=== PATIENT | female | born 1985 | race Caucasian/White ===

== ENCOUNTER 2023-01-27 10:24 | Inpatient (IN) | payer OTHER ==
--- NOTE | 2023-01-27 10:44 | ED ---
Recheck HPI - General Chief Complaint: Recheck/Abnormal Lab/Rx Stated Complaint: fluid in stomach Time Seen by Provider: 01/27/23 10:33 Source: patient, RN notes reviewed Mode of arrival: ambulatory Limitations: no limitations - History of Present Illness Initial Comments: This is a 37-year-old female who presents to the emergency department for a paracentesis. Patient has liver failure secondary to alcohol abuse. She tried to check into [facility] today, but was sent here for a paracentesis. Patient states that she last had one a couple of weeks ago into [place], [place]. However, she is originally from [place], [place]. Currently complaining of abdominal pain related to the ascites. Denies any fevers, chills, sore throat, cough, chest pain, palpitations, nausea, vomiting, diarrhea, back pain, or headaches. - Related Data Home Medications Medication Instructions Recorded Confirmed Cyanocobalamin [Vitamin B-12] 500 mcg PO DAILY PRN 01/27/23 01/27/23 Furosemide [Lasix] 40 mg PO DAILY 01/27/23 01/27/23 Lactulose 20 gm PO TID PRN 01/27/23 01/27/23 Omeprazole [PriLOSEC] 20 mg PO DAILY 01/27/23 01/27/23 Spironolactone [Aldactone] 50 mg PO DAILY 01/27/23 01/27/23 nadoloL [Corgard] 20 mg PO DAILY 01/27/23 01/27/23 Allergies Allergy/AdvReac Type Severity Reaction Status Date / Time No Known Allergies Allergy Verified 01/27/23 12:18 Review of Systems ROS Statement: Those systems with pertinent positive or pertinent negative responses have been documented in the HPI. ROS Other: All systems not noted in ROS Statement are negative. Past Medical History Additional Past Medical History / Comment(s): Liver failure, ETOH abuse, Anemia History of Any Multi-Drug Resistant Organisms: None Reported Past Surgical History: No Surgical Hx Reported Past Psychological History: No Psychological Hx Reported Smoking Status: Never smoker Past Alcohol Use History: Abuse Past Drug Use History: None Reported - Past Family History Father Family Medical History: No Reported History Mother Additional Family Medical History / Comment(s): Anemia General Exam Limitations: no limitations General appearance: alert, in no apparent distress Head exam: Present: atraumatic, normocephalic, normal inspection Eye exam: Present: scleral icterus Respiratory exam: Present: normal lung sounds bilaterally. Absent: respiratory distress, wheezes, rales, rhonchi, stridor Cardiovascular Exam: Present: regular rate, normal rhythm, normal heart sounds. Absent: systolic murmur, diastolic murmur, rubs, gallop, clicks GI/Abdominal exam: Present: distended. Absent: soft Neurological exam: Present: alert, oriented X3, CN II-XII intact Psychiatric exam: Present: normal affect, normal mood Skin exam: Present: other (diffuse jaundice) Course Vital Signs 01/27/23 01/27/23 10:27 14:43 Temperature 97.7 F Pulse Rate 104 H 95 Respiratory 22 16 Rate Blood Pressure 132/78 108/71 O2 Sat by Pulse 100 100 Oximetry Medical Decision Making - Medical Decision Making This is a 37-year-old female who presents to the emergency department for ascites. Was pt. sent in by a medical professional or institution? @ -No Did you speak to anyone other than the patient for history? @ -No Did you review nursing and triage notes? @ -Yes, and I agree, it is accurate with regards to the patient's symptoms. Were old charts reviewed? @ -No Differential Diagnosis? @ -Differential Abdominal Distention: Ascites, internal bleeding, IBS, gas buildup, bowel obstruction, this is not meant to be an all-inclusive list. What testing was considered but not performed? (CT, X-rays, U/S, labs)? Why? @ -None What meds were considered but not given? Why? @ -None Did you discuss the management of the patient with other professionals? @ -Yes, Dr. Cope, who accepts the patient for admission. Did you reconcile home meds? @ -Yes Was smoking cessation discussed for >3mins.? @ -No Was critical care preformed (if so, how long)? @ -No Were there social determinants of health that impacted care today? How? (Homel essness, low income, unemployed, alcoholism, drug addiction, transportation, low edu. Level, literacy, decrease access to med. care, snf, rehab)? @ -Alcoholism, contributing to her poor liver function. Was there de-escalation of care discussed even if they declined? (Discuss DNR or withdrawal of care, Hospice)? @ -No What co-morbidities impacted this encounter? (DM, HTN, Smoking, COPD, CAD, Cancer, CVA, Hep., AIDS, mental health diagnosis, sleep apnea, morbid obesity)? @ -Alcoholism Was patient admitted / discharged? @ -Admitted. Lab work obtained and consistent with the patient's previously noted liver failure, with a bilirubin of 15.5. Patient is visibly jaundice with abdominal distention secondary to ascites. Patient admitted to medicine with IR consult for paracentesis. Undiagnosed new problem with uncertain prognosis? @ -None Drug Therapy requiring intensive monitoring for toxicity (Heparin, Nitro, Insulin, Cardizem)? @ -None Were any procedures done? @ -None Diagnosis/symptom? @ -Ascites Acute, or Chronic, or Acute on Chronic? @ -Acute Uncomplicated (without systemic symptoms) or Complicated (systemic symptoms)? @ -Complicated Side effects of treatment? @ -None Exacerbation, Progression, or Severe Exacerbation] @ -Not applicable Poses a threat to life or bodily function? @ -Yes Diagnosis/symptom? @ -Liver cirrhosis Acute, or Chronic, or Acute on Chronic? @ -Chronic Uncomplicated (without systemic symptoms) or Complicated (systemic symptoms)? @ -Complicated Side effects of treatment? @ -None Exacerbation, Progression, or Severe Exacerbation] @ -Severe exacerbation Poses a threat to life or bodily function? @ -Yes This case was discussed in detail with the attending ED physician, Dr. Louis. Presentation, findings, and treatment plan discussed in detail as well. - Lab Data Result diagrams: 01/27/23 11:05 01/27/23 11:05 Lab Results 01/27/23 01/27/23 01/27/23 Range/Units 11:05 11:05 11:05 WBC 2.7 L (3.8-10.6) k/uL RBC 2.07 L (3.80-5.40) m/uL Hgb 8.1 L (11.4-16.0) gm/dL Hct 24.3 L (34.0-46.0) % MCV 117.6 H (80.0-100.0) fL MCH 39.0 H (25.0-35.0) pg MCHC 33.2 (31.0-37.0) g/dL RDW 22.9 H (11.5-15.5) % Plt Count 32 L (150-450) k/uL MPV 9.2 Neutrophils % 77 % Lymphocytes % 12 % Monocytes % 6 % Eosinophils % 2 % Basophils % 1 % Neutrophils # 2.1 (1.3-7.7) k/uL Lymphocytes # 0.3 L (1.0-4.8) k/uL Monocytes # 0.2 (0-1.0) k/uL Eosinophils # 0.1 (0-0.7) k/uL Basophils # 0.0 (0-0.2) k/uL Differential Comment Manual Slide Review Performed Hypochromasia Slight Poikilocytosis Slight Anisocytosis Moderate Macrocytosis Marked A PT (9.0-12.0) sec INR (<1.2) APTT (22.0-30.0) sec Sodium 134 L (137-145) mmol/L Potassium 3.4 L (3.5-5.1) mmol/L Chloride 105 (98-107) mmol/L Carbon Dioxide 23 (22-30) mmol/L Anion Gap 6 mmol/L BUN 9 (7-17) mg/dL Creatinine 0.59 (0.52-1.04) mg/dL Est GFR (CKD-EPI)AfAm >90 (>60 ml/min/1.73 sqM) Est GFR (CKD-EPI)NonAf >90 (>60 ml/min/1.73 sqM) Glucose 165 H (74-99) mg/dL Plasma Lactic Acid Adrian 1.7 (0.7-2.0) mmol/L Calcium 7.7 L (8.4-10.2) mg/dL Total Bilirubin 15.5 H* (0.2-1.3) mg/dL Conjugated Bilirubin 2.4 H (0.0-0.3) mg/dL Unconjugated Bilirubin 7.3 H (0.0-1.1) mg/dL Delta Bilirubin 5.8 H (0.0-0.2) mg/dL AST 51 H (14-36) U/L ALT 30 (4-34) U/L Alkaline Phosphatase 73 (38-126) U/L Total Protein 6.6 (6.3-8.2) g/dL Albumin 2.6 L (3.5-5.0) g/dL Urine Color Urine Appearance (Clear) Urine pH (5.0-8.0) Ur Specific Cunningham (1.001-1.035) Urine Protein (Negative) Urine Glucose (UA) (Negative) Urine Ketones (Negative) Urine Blood (Negative) Urine Nitrite (Negative) Urine Bilirubin (Negative) Urine Urobilinogen (<2.0) mg/dL Ur Leukocyte Esterase (Negative) Urine RBC (0-5) /hpf Urine WBC (0-5) /hpf Ur Squamous Epith Cells (0-4) /hpf Urine Mucus (None) /hpf Urine HCG, Qual (Not Detectd) Urine Opiates Screen (NotDetected) Ur Oxycodone Screen (NotDetected) Urine Methadone Screen (NotDetected) Ur Propoxyphene Screen (NotDetected) Ur Barbiturates Screen (NotDetected) U Tricyclic Antidepress (NotDetected) Ur Phencyclidine Scrn (NotDetected) Ur Amphetamines Screen (NotDetected) U Methamphetamines Scrn (NotDetected) U Benzodiazepines Scrn (NotDetected) Urine Cocaine Screen (NotDetected) U Marijuana (THC) Screen (NotDetected) Serum Alcohol <10 mg/dL 01/27/23 01/27/23 01/27/23 Range/Units 11:05 12:48 12:48 WBC (3.8-10.6) k/uL RBC (3.80-5.40) m/uL Hgb (11.4-16.0) gm/dL Hct (34.0-46.0) % MCV (80.0-100.0) fL MCH (25.0-35.0) pg MCHC (31.0-37.0) g/dL RDW (11.5-15.5) % Plt Count (150-450) k/uL MPV Neutrophils % % Lymphocytes % % Monocytes % % Eosinophils % % Basophils % % Neutrophils # (1.3-7.7) k/uL Lymphocytes # (1.0-4.8) k/uL Monocytes # (0-1.0) k/uL Eosinophils # (0-0.7) k/uL Basophils # (0-0.2) k/uL Differential Comment Manual Slide Review Hypochromasia Poikilocytosis Anisocytosis Macrocytosis PT 18.8 H (9.0-12.0) sec INR 1.9 H (<1.2) APTT 30.9 H (22.0-30.0) sec Sodium (137-145) mmol/L Potassium (3.5-5.1) mmol/L Chloride (98-107) mmol/L Carbon Dioxide (22-30) mmol/L Anion Gap mmol/L BUN (7-17) mg/dL Creatinine (0.52-1.04) mg/dL Est GFR (CKD-EPI)AfAm (>60 ml/min/1.73 sqM) Est GFR (CKD-EPI)NonAf (>60 ml/min/1.73 sqM) Glucose (74-99) mg/dL Plasma Lactic Acid Adrian (0.7-2.0) mmol/L Calcium (8.4-10.2) mg/dL Total Bilirubin (0.2-1.3) mg/dL Conjugated Bilirubin (0.0-0.3) mg/dL Unconjugated Bilirubin (0.0-1.1) mg/dL Delta Bilirubin (0.0-0.2) mg/dL AST (14-36) U/L ALT (4-34) U/L Alkaline Phosphatase (38-126) U/L Total Protein (6.3-8.2) g/dL Albumin (3.5-5.0) g/dL Urine Color [employer] Urine Appearance Clear (Clear) Urine pH 6.5 (5.0-8.0) Ur Specific Cunningham 1.011 (1.001-1.035) Urine Protein Negative (Negative) Urine Glucose (UA) Negative (Negative) Urine Ketones Negative (Negative) Urine Blood Negative (Negative) Urine Nitrite Negative (Negative) Urine Bilirubin 2+ H (Negative) Urine Urobilinogen >12.0 (<2.0) mg/dL Ur Leukocyte Esterase Small H (Negative) Urine RBC 1 (0-5) /hpf Urine WBC 5 (0-5) /hpf Ur Squamous Epith Cells 3 (0-4) /hpf Urine Mucus Rare H (None) /hpf Urine HCG, Qual Not Detected (Not Detectd) Urine Opiates Screen (NotDetected) Ur Oxycodone Screen (NotDetected) Urine Methadone Screen (NotDetected) Ur Propoxyphene Screen (NotDetected) Ur Barbiturates Screen (NotDetected) U Tricyclic Antidepress (NotDetected) Ur Phencyclidine Scrn (NotDetected) Ur Amphetamines Screen (NotDetected) U Methamphetamines Scrn (NotDetected) U Benzodiazepines Scrn (NotDetected) Urine Cocaine Screen (NotDetected) U Marijuana (THC) Screen (NotDetected) Serum Alcohol mg/dL 01/27/23 Range/Units 12:48 WBC (3.8-10.6) k/uL RBC (3.80-5.40) m/uL Hgb (11.4-16.0) gm/dL Hct (34.0-46.0) % MCV (80.0-100.0) fL MCH (25.0-35.0) pg MCHC (31.0-37.0) g/dL RDW (11.5-15.5) % Plt Count (150-450) k/uL MPV Neutrophils % % Lymphocytes % % Monocytes % % Eosinophils % % Basophils % % Neutrophils # (1.3-7.7) k/uL Lymphocytes # (1.0-4.8) k/uL Monocytes # (0-1.0) k/uL Eosinophils # (0-0.7) k/uL Basophils # (0-0.2) k/uL Differential Comment Manual Slide Review Hypochromasia Poikilocytosis Anisocytosis Macrocytosis PT (9.0-12.0) sec INR (<1.2) APTT (22.0-30.0) sec Sodium (137-145) mmol/L Potassium (3.5-5.1) mmol/L Chloride (98-107) mmol/L Carbon Dioxide (22-30) mmol/L Anion Gap mmol/L BUN (7-17) mg/dL Creatinine (0.52-1.04) mg/dL Est GFR (CKD-EPI)AfAm (>60 ml/min/1.73 sqM) Est GFR (CKD-EPI)NonAf (>60 ml/min/1.73 sqM) Glucose (74-99) mg/dL Plasma Lactic Acid Adrian (0.7-2.0) mmol/L Calcium (8.4-10.2) mg/dL Total Bilirubin (0.2-1.3) mg/dL Conjugated Bilirubin (0.0-0.3) mg/dL Unconjugated Bilirubin (0.0-1.1) mg/dL Delta Bilirubin (0.0-0.2) mg/dL AST (14-36) U/L ALT (4-34) U/L Alkaline Phosphatase (38-126) U/L Total Protein (6.3-8.2) g/dL Albumin (3.5-5.0) g/dL Urine Color Urine Appearance (Clear) Urine pH (5.0-8.0) Ur Specific Cunningham (1.001-1.035) Urine Protein (Negative) Urine Glucose (UA) (Negative) Urine Ketones (Negative) Urine Blood (Negative) Urine Nitrite (Negative) Urine Bilirubin (Negative) Urine Urobilinogen (<2.0) mg/dL Ur Leukocyte Esterase (Negative) Urine RBC (0-5) /hpf Urine WBC (0-5) /hpf Ur Squamous Epith Cells (0-4) /hpf Urine Mucus (None) /hpf Urine HCG, Qual (Not Detectd) Urine Opiates Screen Not Detected (NotDetected) Ur Oxycodone Screen Not Detected (NotDetected) Urine Methadone Screen Not Detected (NotDetected) Ur Propoxyphene Screen Not Detected (NotDetected) Ur Barbiturates Screen Not Detected (NotDetected) U Tricyclic Antidepress Not Detected (NotDetected) Ur Phencyclidine Scrn Not Detected (NotDetected) Ur Amphetamines Screen Not Detected (NotDetected) U Methamphetamines Scrn Not Detected (NotDetected) U Benzodiazepines Scrn Not Detected (NotDetected) Urine Cocaine Screen Not Detected (NotDetected) U Marijuana (THC) Screen Detected H (NotDetected) Serum Alcohol mg/dL Disposition Clinical Impression: Cirrhosis of liver with ascites Disposition: ADMITTED IP TO THIS HOSP
[2023-01-27 11:55] LABS: ALT 30 U/L (4-34); AST 51 U/L (14-36); African American GFR (CKD) >90 (>60 ml/min/1.73 sqM); Albumin 2.6 g/dL (3.5-5.0); Alcohol <10 mg/dL; Alkaline Phosphatase 73 U/L (38-126); Anion Gap 6 mmol/L; Bilirubin, Conjugated 2.4 mg/dL (0.0-0.3); Bilirubin, Delta 5.8 mg/dL (0.0-0.2); Bilirubin,Unconjugated 7.3 mg/dL (0.0-1.1); Blood Urea Nitrogen 9 mg/dL (7-17); Calcium 7.7 mg/dL (8.4-10.2); Carbon Dioxide 23 mmol/L (22-30); Chloride 105 mmol/L (98-107); Glucose 165 mg/dL (74-99); Non-African American GFR(CKD) >90 (>60 ml/min/1.73 sqM); Potassium 3.4 mmol/L (3.5-5.1); Sodium 134 mmol/L (137-145)
[2023-01-27 12:11] LABS: Anisocytosis Moderate; Basophils % (A) 1 %; Eosinophils # (A) 0.1 k/uL (0-0.7); Eosinophils % (A) 2 %; HCT 24.3 % (34.0-46.0); HGB 8.1 gm/dL (11.4-16.0); Hypochromasia Slight; Lymphocytes # (A) 0.3 k/uL (1.0-4.8); Lymphocytes % (A) 12 %; MCHC 33.2 g/dL (31.0-37.0); MCV 117.6 fL (80.0-100.0); Macrocytosis Marked; Mean Platelet Volume 9.2; Monocytes # (A) 0.2 k/uL (0-1.0); Monocytes % (A) 6 %; Neutrophils # (A) 2.1 k/uL (1.3-7.7); Neutrophils % (A) 77 %; Poikilocytosis Slight; RBC 2.07 m/uL (3.80-5.40); RDW 22.9 % (11.5-15.5); WBC 2.7 k/uL (3.8-10.6)
[2023-01-27 12:13] LABS: Total Bilirubin 15.5 mg/dL (0.2-1.3); Total Protein 6.6 g/dL (6.3-8.2)
[2023-01-27 13:15] LABS: Appearance,Urine Clear (Clear); Bilirubin,Urine 2+ (Negative); Blood,Urine Negative (Negative); Color,Urine Orange; Glucose,Urine (UA) Negative (Negative); Ketones,Urine Negative (Negative); Leukocyte Esterase,Urine Small (Negative); Mucus,Urine Rare /hpf; Nitrite,Urine Negative (Negative); PH, Urine 6.5 (5.0-8.0); Protein,Urine Negative (Negative); RBC,Urine 1 /hpf (0-5); Specific Gravity,Urine 1.011 (1.001-1.035); Squamous Epithelial Cell,Urine 3 /hpf (0-4); Urobilinogen,Urine >12.0 mg/dL (<2.0); WBC,Urine 5 /hpf (0-5)
[2023-01-27 13:19] LABS: INR 1.9 (<1.2); Partial Thromboplastin Time 30.9 sec (22.0-30.0); Prothrombin Time 18.8 sec (9.0-12.0)
[2023-01-27 13:27] LABS: Platelet Count 32 k/uL (150-450)
[2023-01-27 13:40] LABS: Amphetamine Screen,Urine Not Detected (NotDetected); Barbiturate Screen,Urine Not Detected (NotDetected); Benzodiazepines Screen,Urine Not Detected (NotDetected); Cocaine Screen,Urine Not Detected (NotDetected); Methadone Screen, Urine Not Detected (NotDetected); Opiate Screen,Urine Not Detected (NotDetected); Oxycodone Screen, Urine Not Detected (NotDetected); Phencyclidine Screen,Urine Not Detected (NotDetected); Tricyclic Antidepressant,Urine Not Detected (NotDetected); Urn Cannabinoid Scrn Detected (NotDetected)
[2023-01-27] MEDS ORDERED: ONDANSETRON 4 MG/2 ML VIAL IVP PRN (14:04)
[2023-01-27] MEDS ORDERED: NALOXONE 0.4 MG/ML 1 ML VIAL IV PRN (14:04)
[2023-01-27] MEDS ORDERED: LACTULOSE 20 GM/30 ML CUP PO PRN (14:10)
[2023-01-27] MEDS ORDERED: CYANOCOBALAMIN 500 MCG TAB PO PRN (14:10)
--- NOTE | 2023-01-27 23:52 | P.HPIM ---
History of Present Illness H&P Date: 01/27/23 Chief Complaint: Abdominal distention Patient is a 37-year-old female with a known history of alcoholic liver cirrhosis, ascites with recent paracentesis on 01/19/2023 at [facility], anemia and alcohol abuse last drink in November 2022 presents to ER with complaints of abdominal distention and paracentesis. Patient tried to check in the [place] but was sent here for paracentesis. Otherwise patient denies any complaints of abdominal pain. No fever no chills. Shortness of breath with exertion. No pleuritic chest pain. No cough or sputum production. Patient is on follow-up at [facility] for liver transplant. with Dr. Delaney. Denies any recent illnesses. Laboratory test showed WBC 2.7 hemoglobin 8.1 and platelets 32 and MCV 117 INR 1.9 Sodium 134 potassium 3.4 chloride 105 bicarb is 23 BUN 9 and creatinine 0.59 and blood sugar is 165 and total bilirubin level is 14.5 and AST 51 ALT 30 alk phos 73 and albumin 2.6 Urinalysis is negative for infection UDS positive for marijuana Serum alcohol level is less than 10 Review of Systems Constitutional: Patient denies any fever or chills . no Generalized weakness. Abdomen: Patient denied any nausea or vomiting or abd. pain. Abdominal distention. Cardiovascular: Patient denies any chest pain or short of breath no palpitations. Respiratory: patient denied any cough . no sputum production. No shortness of breath Neurologic: Patient denied any numbness or tingling headache. Musculoskeletal: Patient denies any complaints of joint swelling or deformity. Skin: Negative Psychiatric: Negative Endocrine: No heat or cold intolerance. No recent weight gain. Genitourinary: No dysuria or hematuria. All other 14 point ROS negative except the above Past Medical History Past Medical History: Liver Disease Additional Past Medical History / Comment(s): Liver failure, ETOH abuse, Anemia History of Any Multi-Drug Resistant Organisms: None Reported Past Surgical History: No Surgical Hx Reported Additional Past Surgical History / Comment(s): 2 paracentesis, last paracentesis 01/19 at [facility] Past Anesthesia/Blood Transfusion Reactions: No Reported Reaction Past Psychological History: No Psychological Hx Reported Smoking Status: Never smoker Past Alcohol Use History: Abuse Past Drug Use History: None Reported - Past Family History Father Family Medical History: No Reported History Mother Additional Family Medical History / Comment(s): Anemia Medications and Allergies Home Medications Medication Instructions Recorded Confirmed Type Cyanocobalamin [Vitamin B-12] 500 mcg PO DAILY PRN 01/27/23 01/27/23 History Furosemide [Lasix] 40 mg PO DAILY 01/27/23 01/27/23 History Lactulose 20 gm PO TID PRN 01/27/23 01/27/23 History Omeprazole [PriLOSEC] 20 mg PO DAILY 01/27/23 01/27/23 History Spironolactone [Aldactone] 50 mg PO DAILY 01/27/23 01/27/23 History nadoloL [Corgard] 20 mg PO DAILY 01/27/23 01/27/23 History Allergies Allergy/AdvReac Type Severity Reaction Status Date / Time No Known Allergies Allergy Verified 01/27/23 12:18 Physical Exam Vitals: Vital Signs Temp Pulse Pulse Resp BP BP Pulse Ox 01/27/23 16:12 98.8 F 89 16 106/64 99 01/27/23 14:43 95 16 108/71 100 01/27/23 10:27 97.7 F 104 H 22 132/78 100 Intake and Output 01/27/23 01/27/23 01/27/23 06:59 14:59 22:59 Other: Weight 79.379 kg 79.379 kg PHYSICAL EXAMINATION: Patient is lying in the bed comfortably, no acute distress, awake alert and oriented.. HEENT: Normocephalic. Neck is supple. Pupils reactive. Icteric sclera, nostrils clear. Oral cavity is moist. Neck reveals no JVD, carotid bruits, or thyromegaly. CHEST EXAMINATION: Trachea is central. Symmetrical Expansion. Lung latif clear to auscultation and percussion. Bibasilar diminished sounds. CARDIAC: Normal S1, S2 with no gallops. No murmurs ABDOMEN: Soft. Bowel sounds present. Nontender. Distended with ascites, no organomegaly. No abdominal bruits. Extremities: reveal no edema. No clubbing or cyanosis Neurologically awake, alert, oriented x3 with well-coordinated movements. No focal deficits noted Skin: No rash or skin lesions. Yellowish discoloration Psychiatric: Coperative. Nonsuicidal, Musculoskeletal: No joint swelling or deformity. Normal range of motion. Results CBC & Chem 7: 01/27/23 11:05 01/27/23 11:05 Labs: Abnormal Lab Results - Last 24 Hours (Table) 01/27/23 01/27/23 01/27/23 Range/Units 11:05 11:05 11:05 WBC 2.7 L (3.8-10.6) k/uL RBC 2.07 L (3.80-5.40) m/uL Hgb 8.1 L (11.4-16.0) gm/dL Hct 24.3 L (34.0-46.0) % MCV 117.6 H (80.0-100.0) fL MCH 39.0 H (25.0-35.0) pg RDW 22.9 H (11.5-15.5) % Plt Count 32 L (150-450) k/uL Lymphocytes # 0.3 L (1.0-4.8) k/uL Macrocytosis Marked A PT 18.8 H (9.0-12.0) sec INR 1.9 H (<1.2) APTT 30.9 H (22.0-30.0) sec Sodium 134 L (137-145) mmol/L Potassium 3.4 L (3.5-5.1) mmol/L Glucose 165 H (74-99) mg/dL Calcium 7.7 L (8.4-10.2) mg/dL Total Bilirubin 15.5 H* (0.2-1.3) mg/dL Conjugated Bilirubin 2.4 H (0.0-0.3) mg/dL Unconjugated Bilirubin 7.3 H (0.0-1.1) mg/dL Delta Bilirubin 5.8 H (0.0-0.2) mg/dL AST 51 H (14-36) U/L Albumin 2.6 L (3.5-5.0) g/dL Urine Bilirubin (Negative) Ur Leukocyte Esterase (Negative) Urine Mucus (None) /hpf U Marijuana (THC) Screen (NotDetected) 01/27/23 01/27/23 Range/Units 12:48 12:48 WBC (3.8-10.6) k/uL RBC (3.80-5.40) m/uL Hgb (11.4-16.0) gm/dL Hct (34.0-46.0) % MCV (80.0-100.0) fL MCH (25.0-35.0) pg RDW (11.5-15.5) % Plt Count (150-450) k/uL Lymphocytes # (1.0-4.8) k/uL Macrocytosis PT (9.0-12.0) sec INR (<1.2) APTT (22.0-30.0) sec Sodium (137-145) mmol/L Potassium (3.5-5.1) mmol/L Glucose (74-99) mg/dL Calcium (8.4-10.2) mg/dL Total Bilirubin (0.2-1.3) mg/dL Conjugated Bilirubin (0.0-0.3) mg/dL Unconjugated Bilirubin (0.0-1.1) mg/dL Delta Bilirubin (0.0-0.2) mg/dL AST (14-36) U/L Albumin (3.5-5.0) g/dL Urine Bilirubin 2+ H (Negative) Ur Leukocyte Esterase Small H (Negative) Urine Mucus Rare H (None) /hpf U Marijuana (THC) Screen Detected H (NotDetected) Thrombosis Risk Factor Assmnt - DVT/VTE Prophylaxis DVT/VTE Prophylaxis: Mechanical Prophylaxis ordered - Choose All That Apply Any of the Below Risk Factors Present?: Yes Each Factor Represents 1 point: Swollen legs (current) Thrombosis Risk Factor Assessment Total Risk Factor Score: 1 Thrombosis Risk Factor Assessment Level: Low Risk Assessment and Plan Assessment: Ascites due to alcoholic liver cirrhosis Severe alcohol abuse last drink in November 2022 Macrocytic anemia due to alcohol abuse Thrombocytopenia Coagulopathy due to alcoholic liver disease Hyperbilirubinemia Hypoalbuminemia Liver cirrhosis. On follow-up with liver transplant team at [facility]. DVT prophylaxis. Patient is already auto anticoagulated. Plan: Patient will be continued on Lasix and spironolactone and PPI. Replace electrolytes. IR guided paracentesis was ordered. Continue to follow closely. Alcohol cessation has been counseled extensively. Time with Patient: Greater than 30
[2023-01-28] MEDS: PANTOPRAZOLE 40 MG TABLET PO SCH (08:24)
[2023-01-28] MEDS: SPIRONOLACTONE 25 MG TAB PO SCH (08:24)
[2023-01-28] MEDS: FUROSEMIDE 40 MG TAB PO SCH (08:25)
--- NOTE | 2023-01-28 23:40 | P.PN ---
Subjective Progress Note Date: 01/28/23 Patient is a 37-year-old female with a known history of alcoholic liver cirrhosis, ascites with recent paracentesis on 01/19/2023 at [facility], anemia and alcohol abuse last drink in November 2022 presents to ER with complaints of abdominal distention and paracentesis. Patient tried to check in the [place] but was sent here for paracentesis. Otherwise patient denies any complaints of abdominal pain. No fever no chills. Shortness of breath with exertion. No pleuritic chest pain. No cough or sputum production. Patient is on follow-up at [facility] for liver transplant. with Dr. Delaney. Denies any recent illnesses. Laboratory test showed WBC 2.7 hemoglobin 8.1 and platelets 32 and MCV 117 INR 1.9 Sodium 134 potassium 3.4 chloride 105 bicarb is 23 BUN 9 and creatinine 0.59 and blood sugar is 165 and total bilirubin level is 14.5 and AST 51 ALT 30 alk phos 73 and albumin 2.6 Urinalysis is negative for infection UDS positive for marijuana Serum alcohol level is less than 10 01/28/2023 Patient is currently resting in bed. Awake alert and oriented x3. No complai nts of chest pain or abdominal pain. Abdomen is distended with ascites. Denies any fever or chills. Patient is scheduled for paracentesis tomorrow. Anticipate discharge in next 24 hours. Current medications reviewed. Objective - Vital Signs Vital signs: Vital Signs Temp 98.3 F 01/28/23 12:37 Pulse 95 01/28/23 12:37 Resp 16 01/28/23 12:37 BP 109/64 01/28/23 12:37 Pulse Ox 100 01/28/23 12:37 FiO2 Intake & Output 01/27/23 01/28/23 01/28/23 18:59 06:59 18:59 Intake Total 520 Balance 520 Weight 79.379 kg Intake: Oral 520 Other: Voiding Method Toilet Diaper # Voids 1 1 - Exam PHYSICAL EXAMINATION: Patient is lying in the bed comfortably, no acute distress, awake alert and oriented.. HEENT: Normocephalic. Neck is supple. Pupils reactive. Icteric sclera, nostrils clear. Oral cavity is moist. Neck reveals no JVD, carotid bruits, or thyromegaly. CHEST EXAMINATION: Trachea is central. Symmetrical Expansion. Lung latif clear to auscultation and percussion. Bibasilar diminished sounds. CARDIAC: Normal S1, S2 with no gallops. No murmurs ABDOMEN: Soft. Bowel sounds present. Nontender. Distended with ascites, no organomegaly. No abdominal bruits. Extremities: reveal no edema. No clubbing or cyanosis Neurologically awake, alert, oriented x3 with well-coordinated movements. No focal deficits noted Skin: No rash or skin lesions. Yellowish discoloration Psychiatric: Coperative. Nonsuicidal, Musculoskeletal: No joint swelling or deformity. Normal range of motion. - Labs CBC & Chem 7: 01/27/23 11:05 01/27/23 11:05 Assessment and Plan Assessment: Ascites due to alcoholic liver cirrhosis Severe alcohol abuse last drink in November 2022 Macrocytic anemia due to alcohol abuse Thrombocytopenia Coagulopathy due to alcoholic liver disease Hyperbilirubinemia Hypoalbuminemia Liver cirrhosis. On follow-up with liver transplant team at [facility]. DVT prophylaxis. Patient is already auto anticoagulated. Plan: Patient will be continued on Lasix and spironolactone and PPI. Replace electrolytes. IR guided paracentesis was ordered. Continue to follow closely. Alcohol cessation has been counseled extensively. Patient is scheduled for paracentesis tomorrow.
[2023-01-29 08:20] LABS: Mean Platelet Volume 8.5
[2023-01-29 08:24] LABS: Platelet Count 32 k/uL (150-450)
[2023-01-29 08:28] LABS: INR 1.9 (<1.2); Prothrombin Time 19.1 sec (9.0-12.0)
[2023-01-29] MEDS: FUROSEMIDE 40 MG TAB PO SCH (08:37)
[2023-01-29] MEDS: PANTOPRAZOLE 40 MG TABLET PO SCH (08:37)
[2023-01-29] MEDS: SPIRONOLACTONE 25 MG TAB PO SCH (08:37)
[2023-01-29 10:09] LABS: Albumin 2.4 g/dL (3.8-4.9); Albumin/Globulin Ratio 0.8 (1.60-3.17); Anion Gap 8.8 mmol/L (10.00-18.00); BUN/Creat Ratio 14.74 Ratio (12.00-20.00); Blood Urea Nitrogen 10.1 mg/dL (9.0-27.0); Calcium 7.6 mg/dL (8.7-10.3); Carbon Dioxide 19.5 mmol/L (20.0-27.5); Potassium 3.8 mmol/L (3.5-5.5); Total Bilirubin 13.7 mg/dL (0.30-1.20); Total Protein 5.4 g/dL (6.2-8.2)
[2023-01-29 10:39] LABS: Non-African American GFR(CKD) 113.1 (60.0-200.0)
[2023-01-29 11:31] LABS: Basophils # (A) 0.02 X 10*3/uL (0.00-0.10); Basophils % (A) 0.8 %; Eosinophils # (A) 0.04 X 10*3/uL (0.04-0.35); Eosinophils % (A) 1.6 %; HCT 20.3 % (37.2-46.3); HGB 6.6 g/dL (12.0-15.0); Immature Grans, Automated 1.2 %; Lymphocytes # (A) 0.43 X 10*3/uL (0.90-5.00); Lymphocytes % (A) 16.8 %; MCH 39.1 pg (27.0-32.0); MCHC 32.5 g/dL (32.0-37.0); MCV 120.1 fL (80.0-97.0); Mean Platelet Volume 11.9 fL (9.5-12.2); Monocytes # (A) 0.33 X 10*3/uL (0.20-1.00); Monocytes % (A) 12.9 %; NRBC Per 100 WBC 0 /100 WBCS (0.0-0.0); Neutrophils # (A) 1.71 X 10*3/uL (1.80-7.70); Neutrophils % (A) 66.7 %; Platelet Count 27 X 10*3/uL (140-440); RBC 1.69 X 10*6/uL (4.10-5.20); WBC 2.56 X 10*3/uL (4.50-10.00)
[2023-01-29 11:32] LABS: Immature Platelet Fraction 3.4 % (1.1-6.1); Macrocytosis (M) 2+
--- NOTE | 2023-01-29 12:26 | US ---
EXAMINATION TYPE: US abdomen limited DATE OF EXAM: 01/29/2023 COMPARISON: NONE CLINICAL HISTORY: ascites, evaluate or fluid pocket for paracentesis. Patient states she had a parace ntesis a few weeks ago at another facility with about 7 L removed. Recurrent swelling. All four quadrants scanned. Ascites visualized. IMPRESSION: As above. Moderate amount of peritoneal ascites. Greatest size pocket in the left lower quadrant on images saved.
[2023-01-29] MEDS ORDERED: ACETAMINOPHEN TAB 325 MG TAB PO PRN (12:54)
[2023-01-29 19:13] LABS: INR 1.9 (<1.2); Prothrombin Time 18.5 sec (9.0-12.0)
--- NOTE | 2023-01-29 23:26 | PN ---
PROGRESS NOTE DATE OF SERVICE: 01/29/2023 SUBJECTIVE: This is a 37-year-old woman who was admitted with alcoholic liver disease and severe alcoholic hepatitis, being closely monitored at this time. The abdominal ultrasound showed moderate amount of peritoneal ascites. There is no history of any fever, rigors, chills. The patient is deeply jaundiced. OBJECTIVE: VITAL SIGNS: Pulse 78, blood pressure 90/58, respirations 18. CHEST: Clear to auscultation. CARDIOVASCULAR: S1, S2. ABDOMEN: Soft, ascites. LEGS: No edema. LABORATORY DATA: Hemoglobin 6.6. ASSESSMENT: 1. Acute alcoholic liver cirrhosis and ascites. 2. Severe alcoholic hepatitis. 3. Anemia, multifactorial possibly secondary to gastrointestinal bleed secondary to cirrhosis of liver. 4. Thrombocytopenia. 5. Coagulopathy. 6. Hypobilirubinemia. 7. Hypoalbuminemia. 8. Multiple medical issues. RECOMMENDATIONS: Recommend to continue current management and symptomatic treatment. I would recommend 1 unit of transfusion. Otherwise, I would recommend repeat labs in the morning and also recommend Gastroenterology consultation. We will repeat labs. We will monitor PT/INR. Prognosis guarded. Further recommendations to follow. MMODL / IJN: [id number] /
[2023-01-30 09:56] LABS: INR 1.8 (<1.2); Prothrombin Time 17.7 sec (9.0-12.0)
[2023-01-30] MEDS: LACTULOSE 20 GM/30 ML CUP PO SCH ×3 (10:46→21:19)
[2023-01-30] MEDS: SPIRONOLACTONE 25 MG TAB PO SCH (11:05)
[2023-01-30] MEDS: FUROSEMIDE 40 MG TAB PO SCH (11:06)
[2023-01-30] MEDS: PANTOPRAZOLE 40 MG TABLET PO SCH (11:06)
[2023-01-30 11:50] LABS: HCT 22.7 % (37.2-46.3); HGB 7.4 g/dL (12.0-15.0); MCH 37.4 pg (27.0-32.0); MCHC 32.6 g/dL (32.0-37.0); MCV 114.6 fL (80.0-97.0); Mean Platelet Volume 11.7 fL (9.5-12.2); NRBC Per 100 WBC 0 /100 WBCS (0.0-0.0); Platelet Count 30 X 10*3/uL (140-440); RBC 1.98 X 10*6/uL (4.10-5.20); WBC 2.49 X 10*3/uL (4.50-10.00)
[2023-01-30 12:01] LABS: African American GFR (CKD) 130.1 (60.0-200.0); Albumin 2.3 g/dL (3.8-4.9); Albumin/Globulin Ratio 0.82 (1.60-3.17); Anion Gap 9.5 mmol/L (10.00-18.00); BUN/Creat Ratio 17.86 Ratio (12.00-20.00); Blood Urea Nitrogen 12.5 mg/dL (9.0-27.0); Calcium 7.7 mg/dL (8.7-10.3); Carbon Dioxide 18.5 mmol/L (20.0-27.5); Globulin 2.8 g/dL (1.6-3.3); Non-African American GFR(CKD) 112.3 (60.0-200.0); Potassium 3.6 mmol/L (3.5-5.5); Total Protein 5.1 g/dL (6.2-8.2)
[2023-01-30 12:16] LABS: Acanthocytes 2+; Anisocytosis (M) 2+; Basophils # (A) 0.02 X 10*3/uL (0.00-0.10); Basophils % (A) 0.8 %; Eosinophils # (A) 0.07 X 10*3/uL (0.04-0.35); Eosinophils % (A) 2.8 %; Immature Grans, Automated 1.2 %; Immature Platelet Fraction 3.9 % (1.1-6.1); Lymphocytes # (A) 0.34 X 10*3/uL (0.90-5.00); Lymphocytes % (A) 13.7 %; Macrocytosis (M) 2+; Monocytes # (A) 0.36 X 10*3/uL (0.20-1.00); Monocytes % (A) 14.5 %; Neutrophils # (A) 1.67 X 10*3/uL (1.80-7.70); Rouleaux PRESENT
--- NOTE | 2023-01-30 14:29 | US ---
Ultrasound-guided paracentesis. DATE OF EXAM: 01/30/2023 CLINICAL HISTORY: Ascites The procedure was discussed with the patient. The risks, complications, benefits, and alternatives we re discussed and any questions were answered. Informed consent was obtained. The patient was placed s upine on the ultrasound table and prepped and draped in the usual sterile fashion. All elements of maximal barrier technique were utilized. Under ultrasound guidance, access into the right lower quadrant was obtained, via the paracentesis catheter system and direct ultrasound guidanc e. Approximately 6.1 liters of straw-colored fluid was removed. The patient was stable throughout the pr ocedure and remained stable upon discharge from Department of Radiology. IMPRESSION: Successful paracentesis under ultrasound guidance.
--- NOTE | 2023-01-30 14:54 | P.CONS ---
History of Present Illness - Reason for Consult Consult date: 01/30/23 GI bleeding Requesting physician: Bhanu Morrow - Chief Complaint Abdominal distention, ascites - History of Present Illness This is a pleasant 37-year-old female with a known history of alcoholic liver disease who follows with [facility] who presented to the emergency department on 01/27/2023 with complaints of abdominal distention.. Patient states she was diagnosed with cirrhosis of the liver approximately 2 years ago and follows with at the [facility], her last visit was greater than 1 year ago. Patient has long-standing history of alcohol abuse, states her last drink was 11/22/2022. States that she was a heavy daily drinker for at least 10 years. She was admitting herself to [facility] for rehab and due to her abdominal distention they sent her to the emergency department for further evaluation. Her last paracentesis was done on 01/18/2023, and 2 years prior to that. She states that she takes Lasix 40 mg daily, spironolactone 50 mg daily and lactulose 20 g as needed. She states that she tries to take at least 1 dose a day. Patient was noted to be pancytopenic on admission, hyperammonemia, and elevated LFTs. Hemoglobin was 8.1 on admission with a dropped to 6.6 yesterday with platelet count of 32,000. Gastroenterology was consulted for GI bleed. She was given 1 unit of blood, and 1 unit of platelets were ordered. The patient has been jaundiced for quite some time, again however she has not followed up with her liver specialist in felt one year. Abdominal ultrasound reported moderate amount of peritoneal ascites greatest pocket in the left lower quadrant on images. Today's labs WBC 2.4 hemoglobin 7.4 hematocrit 22 platelet count 30,000 INR 1.8 sodium 131 potassium 3.6 BUN 12.5 creatinine 0 .7 total bilirubin 14 AST 47 ALT 26 alkaline phosphatase 80 ammonia 129 . Patient scheduled to undergo paracentesis today with interventional radiology. She denies any abdominal pain, no nausea or vomiting. Denies any chest pain or shortness of breath, fevers or chills. Patient denies any black stool or blood in her stool, no history of GI bleed. Labs 01/29/23 WBC 2.5 hemoglobin 6.6 hematocrit 20.3 platelet count 32,000 INR 1.9 sodium 132 potassium 3.8 BUN 10 creatinine 0.7 glucose 112 total bilirubin 13.7 AST 50 ALT 24 alkaline phosphatase 66 Review of Systems REVIEW OF SYSTEMS: CARDIOPULMONARY: No chest pain or shortness of breath. Gastrointestinal: Abdominal distention, ascites. No nausea or vomiting. No hematemesis, coffee-ground emesis. No rectal bleeding, or melena. GENITOURINARY: No dysuria or hematuria. MUSCULOSKELETAL: Reports normal range of motion. SKIN: No rashes. Jaundice. Lower extremity swelling. ENDOCRINE: No chills, fevers. No excessive weight gain or loss. No polydipsia or polyuria. PSYCHIATRIC: Unremarkable. NEUROLOGY: No change in mental status. Denies dizziness, headache. ENT: Vision unremarkable. CONSTITUTIONAL: No recent weight loss. No fever, chills, night sweats. Past Medical History Past Medical History: Liver Disease Additional Past Medical History / Comment(s): Liver failure, ETOH abuse, Anemia History of Any Multi-Drug Resistant Organisms: None Reported Past Surgical History: No Surgical Hx Reported Additional Past Surgical History / Comment(s): 2 paracentesis, last paracentesis 01/19 at [facility] Past Anesthesia/Blood Transfusion Reactions: No Reported Reaction Past Psychological History: No Psychological Hx Reported Smoking Status: Never smoker Past Alcohol Use History: Abuse Past Drug Use History: None Reported - Past Family History Father Family Medical History: No Reported History Mother Additional Family Medical History / Comment(s): Anemia Medications and Allergies Home Medications Medication Instructions Recorded Confirmed Type Cyanocobalamin [Vitamin B-12] 500 mcg PO DAILY PRN 01/27/23 01/27/23 History Furosemide [Lasix] 40 mg PO DAILY 01/27/23 01/27/23 History Lactulose 20 gm PO TID PRN 01/27/23 01/27/23 History Omeprazole [PriLOSEC] 20 mg PO DAILY 01/27/23 01/27/23 History Spironolactone [Aldactone] 50 mg PO DAILY 01/27/23 01/27/23 History nadoloL [Corgard] 20 mg PO DAILY 01/27/23 01/27/23 History Allergies Allergy/AdvReac Type Severity Reaction Status Date / Time No Known Allergies Allergy Verified 01/27/23 12:18 Physical Exam Vitals: Vital Signs Temp Pulse Pulse Resp BP BP Pulse Ox 01/30/23 13:19 80 14 119/65 100 01/30/23 12:46 98.3 F 75 16 109/66 100 01/30/23 12:29 98.7 F 86 16 109/66 100 01/30/23 07:35 98.4 F 83 18 107/67 100 01/30/23 02:04 98.5 F 88 18 91/44 97 01/29/23 19:24 98.5 F 79 18 110/66 99 01/29/23 19:06 98.2 F 72 20 106/66 100 01/29/23 15:55 98.5 F 78 18 90/55 100 01/29/23 15:25 98.4 F 76 18 104/58 100 01/29/23 15:04 98.4 F 77 18 100/64 99 Intake and Output 01/29/23 01/30/23 01/30/23 22:59 06:59 14:59 Intake Total 310 400 0 Balance 310 400 0 Intake: Oral 400 Blood Product 310 0 Platelet Pheresis Pas 0 Psoralen Unit [id number] Rc As-1 Unit 310 [id number] Other: Voiding Method Toilet Toilet Diaper Diaper # Voids 2 1 General appearance: The patient is alert, oriented, appears in no acute distress. HET: Head is normocephalic and atraumatic. Conjunctiva pink. Sclera deeply icteric. Neck: Supple without lymphadenopathy. Trachea midline. Heart: S1 S2. Regular rate and rhythm. Lungs: Clear to auscultation. Abdomen: Soft, distended/ascites, no tenderness to palpation. No guarding or rigidity. Skin: No rashes. Deeply jaundiced. Extremities: Normal skin color and turgor. Bilateral lower extremity edema. Neurological: No focal deficits. Alert and oriented x3. Results CBC & Chem 7: 01/30/23 05:36 01/30/23 05:36 Labs: Abnormal Lab Results - Last 24 Hours (Table) 01/29/23 01/29/23 01/30/23 Range/Units 13:30 18:14 05:36 WBC 2.49 L (4.50-10.00) X 10*3/uL RBC 1.98 L (4.10-5.20) X 10*6/uL Hgb 7.4 L (12.0-15.0) g/dL Hct 22.7 L (37.2-46.3) % MCV 114.6 H (80.0-97.0) fL MCH 37.4 H (27.0-32.0) pg Plt Count 30 L (140-440) X 10*3/uL Plt Count Comment A Neutrophils # 1.67 L (1.80-7.70) X 10*3/uL Lymphocytes # 0.34 L (0.90-5.00) X 10*3/uL PT 18.5 H (9.0-12.0) sec INR 1.9 H (<1.2) Sodium (135-145) mmol/L Carbon Dioxide (20.0-27.5) mmol/L Anion Gap (10.00-18.00) mmol/L Glucose (70-110) mg/dL Calcium (8.7-10.3) mg/dL Total Bilirubin (0.30-1.20) mg/dL AST (13-35) U/L Ammonia (<30) umol/L Total Protein (6.2-8.2) g/dL Albumin (3.8-4.9) g/dL Albumin/Globulin Ratio (1.60-3.17) g/dL Crossmatch See Detail 01/30/23 01/30/23 01/30/23 Range/Units 05:36 09:20 09:20 WBC (4.50-10.00) X 10*3/uL RBC (4.10-5.20) X 10*6/uL Hgb (12.0-15.0) g/dL Hct (37.2-46.3) % MCV (80.0-97.0) fL MCH (27.0-32.0) pg Plt Count (140-440) X 10*3/uL Plt Count Comment Neutrophils # (1.80-7.70) X 10*3/uL Lymphocytes # (0.90-5.00) X 10*3/uL PT 17.7 H (9.0-12.0) sec INR 1.8 H (<1.2) Sodium 131 L (135-145) mmol/L Carbon Dioxide 18.5 L (20.0-27.5) mmol/L Anion Gap 9.50 L (10.00-18.00) mmol/L Glucose 142 H (70-110) mg/dL Calcium 7.7 L (8.7-10.3) mg/dL Total Bilirubin 14.00 H* (0.30-1.20) mg/dL AST 47 H (13-35) U/L Ammonia 129 H (<30) umol/L Total Protein 5.1 L (6.2-8.2) g/dL Albumin 2.3 L (3.8-4.9) g/dL Albumin/Globulin Ratio 0.82 L (1.60-3.17) g/dL Crossmatch Assessment and Plan (1) Decompensation of cirrhosis of liver Narrative/Plan: 37-year-old female with long-standing history of alcohol abuse diagnosed with alcoholic cirrhosis approximately 2 years ago. Patient was trying to be admitted to [facility] rehab however they sent her here due to severe jaundice and ascites. She states follows with liver specialist A [facility], last seen little over a year ago. Patient had heavy alcohol use greater than 10 years states her last drink was 11/22/2022. Paracentesis last on 01/18/2023, prior to that 2 years ago. Patient with decompensated cirrhosis of the liver likely all related to alcoholic liver disease. Patient labs consistent with underlying hepatocellular disease, pancytopenia and coagulopathy. Patient underwent paracentesis with 6.1 L removed. Continue with alcohol abstinence, will increase Aldactone to 100 mg daily, continue Lasix 40 mg daily. Continue lactulose 20 g 3 times a day, may need to consider adding Xifaxan as ammonia does not improve. Recommend close outpatient follow-up with [facility] alternative education teacher. Current Visit: Yes Status: Acute Code(s): K72.90 - HEPATIC FAILURE, UNSPECIFIED WITHOUT COMA; K74.60 - UNSPECIFIED CIRRHOSIS OF LIVER SNOMED Code(s): 922216904 (2) Alcohol abuse Current Visit: Yes Status: Acute Code(s): F10.10 - ALCOHOL ABUSE, UNCOMPLICATED SNOMED Code(s): 91284123 (3) Ascites Narrative/Plan: Status post paracentesis 6.1 L removed 01/30/2023 Current Visit: Yes Status: Acute Code(s): R18.8 - OTHER ASCITES SNOMED Code(s): 741990884 (4) Hyperammonemia Narrative/Plan: Continue lactulose 20 g 3 times a day, consider adding Xifaxan if no improvement Current Visit: Yes Status: Acute Code(s): E72.20 - DISORDER OF UREA CYCLE METABOLISM, UNSPECIFIED SNOMED Code(s): 9813387 (5) Pancytopenia Narrative/Plan: Due to underlying liver disease, patient was transfused 1 unit PRBC and 1 unit of platelets Current Visit: Yes Status: Acute Code(s): D61.818 - OTHER PANCYTOPENIA SNOMED Code(s): 004935511 (6) Hypercoagulopathy Narrative/Plan: Due to underlying liver disease Current Visit: Yes Status: Acute Code(s): D68.59 - OTHER PRIMARY THROMBOPHILIA SNOMED Code(s): 00612660 Plan: 1. Continue symptomatic and supportive care 2. Low-sodium diet 3. Daily CBC, CMP, INR, ammonia 4. Transfuse for hemoglobin under 7 5. Iron studies ordered 6. Continue Lasix 40 mg daily, increase spironolactone to 100 mg daily 7. Continue lactulose 20 g 3 times a day, mayconsider adding Xifaxan 8. Monitor for withdrawal symptoms 9. Alcohol abstinence 10. Patient is status post paracentesis, albumin ordered Thank you for this consultation, we will continue to follow. Dr. Bret Wells I agree with the dictator's note, documented as a scribe by Shelly Hoffman.
[2023-01-30] MEDS: ALBUMIN HUMAN 25% 50 ML in EMPTY BAG 1 BAG IVPB SCH ×5 (15:02→16:18)
[2023-01-30 18:06] LABS: % Iron Saturation 81.41 (12.00-45.00)
[2023-01-30 21:39] LABS: Appearance,BF Clear
[2023-01-30 22:29] LABS: Glucose, BF Source Paracentesis Fluid; Glucose, Body Fluid 138 mg/dL
--- NOTE | 2023-01-31 04:32 | P.PN ---
Subjective Progress Note Date: 01/30/23 This is a pleasant 37-year-old female who was recently admitted with alcoholic liver disease and alcoholic hepatitis being closely monitored with plans for paracentesis today. Patient was scheduled yesterday although elevated INR and low platelets and interventional radiology recommending platelets ordered for transfusion. Paracentesis and will follow-up with INR today. Patient will be undergoing paracentesis which is currently pending. Patient being followed by GI undergoing workup follows with GI out of [facility]. Patient reports her last alcoholic drink was in November of this year and was attempting to go to alcohol rehab center for evaluation for ascites and jaundice. Patient is currently afebrile with no reports of nausea or vomiting noted. She denies chest pain or shortness of breath. Ammonia remains elevated and would recommend lactulose 3 times a day scheduled as needed. Review of systems: Constitutional: No reports of fatigue, fever, or chills Cardiovascular: No reports of chest pain or palpitations Respiratory: No reports of shortness of breath or cough GI: no reports of nausea, no reports of vomiting : No reports of dysuria or retention Neurovascular: reports of generalized weakness All medications have been reviewed Active Medications Cyanocobalamin (Cyanocobalamin 500 Mcg Tab) 500 mcg PO DAILY PRN PRN Reason: ENERGY Furosemide (Furosemide 40 Mg Tab) 40 mg PO DAILY [facility] Last Admin: 01/30/23 11:06 Dose: 40 mg Lactulose (Lactulose 20 Gm/30 Ml Cup) 20 gm PO TID [facility] Last Admin: 01/30/23 21:19 Dose: 20 gm Nadolol (Nadolol 20 Mg Tab) 20 mg PO DAILY [facility] Last Admin: 01/30/23 11:06 Dose: 20 mg Naloxone HCl (Naloxone 0.4 Mg/Ml 1 Ml Vial) 0.2 mg IV Q2M PRN PRN Reason: Opioid Reversal Ondansetron HCl (Ondansetron 4 Mg/2 Ml Vial) 4 mg IVP Q8HR PRN PRN Reason: Nausea And Vomiting Pantoprazole Sodium (Pantoprazole 40 Mg Tablet) 40 mg PO DAILY [facility] Last Admin: 01/30/23 11:06 Dose: 40 mg Spironolactone (Spironolactone 25 Mg Tab) 100 mg PO DAILY [facility] PHYSICAL EXAMINATION: GENERAL: The patient is alert and oriented x4, Well developed, well nourished. HEENT: Pupils are round and equally reacting to light. EOMI. scleral icterus. No conjunctival pallor. Normocephalic, atraumatic. No pharyngeal erythema. No thyromegaly. CARDIOVASCULAR: S1 and S2 muffled PULMONARY: diminished breath sounds bilaterally with no wheezing or rhonchi noted. ABDOMEN: soft. Nontender on exam. -distended, normoactive bowel sounds. No palpable organomegaly. MUSCULOSKELETAL: No joint swelling or deformity. EXTREMITIES: No cyanosis, clubbing, or pedal edema. NEUROLOGICAL: Gross neurological examination did not reveal any focal deficits. SKIN: No rashes. Jaundice Assessment: Acute alcoholic liver cirrhosis and ascites Severe alcoholic hepatitis Anemia, multifactorial possibly secondary to GI bleed secondary to cirrhosis of the liver Thrombocytopenia Coagulopathy Hyperbilirubinemia Hypoalbuminemia GI prophylaxis DVT prophylaxis Full code Plan: Recommend to continue with current medications and management with interventional radiology and GI following Patient is to undergo paracentesis today and did with approximately 6 L removed and receiving albumin Patient's hemoglobin improved after 1 unit of PRBCs yesterday about 7 and would recommend follow-up labs Ammonia remains elevated in the lactulose scheduled follow-up with repeat labs. Patient had 2-3 loose bowel movements daily Encouraged increased activity as tolerated Will discuss further with GI about discharge planning and discuss if patient is returning to [place] for continued rehab Due to multiple complex medical issues, prognosis is guarded The impression and plan of care has been dictated by Madalyn Perkins, nurse practitioner as directed. Dr. Cristhian MD I have performed a history and examination and MDM of this patient, discussed the same with the dictator, and agree with the dictator's assessment and plan as written ,documented as a scribe. Based on total visit time, I have performed more than 50% of the visit. Any additional findings or plans will be noted. Objective - Vital Signs Vital signs: Vital Signs Temp 98.4 F 01/30/23 07:35 Pulse 83 01/30/23 07:35 Resp 18 01/30/23 07:35 BP 107/67 01/30/23 07:35 Pulse Ox 100 01/30/23 07:35 FiO2 Intake & Output 01/29/23 01/30/23 01/30/23 18:59 06:59 18:59 Intake Total 0 710 Balance 0 710 Intake: Oral 400 Blood Product 0 310 Rc As-1 Unit 0 310 [id number] Other: Voiding Method Toilet Toilet Diaper Diaper # Voids 2 1 - Labs CBC & Chem 7: 01/30/23 05:36 01/30/23 05:36 Labs: Abnormal Lab Results - Last 24 Hours (Table) 01/29/23 01/29/23 01/29/23 Range/Units 03:37 03:37 10:28 WBC 2.56 L (4.50-10.00) X 10*3/uL RBC 1.69 L (4.10-5.20) X 10*6/uL Hgb 6.6 L* (12.0-15.0) g/dL Hct 20.3 L (37.2-46.3) % MCV 120.1 H (80.0-97.0) fL MCH 39.1 H (27.0-32.0) pg Plt Count 27 L (140-440) X 10*3/uL Plt Count Comment A Neutrophils # 1.71 L (1.80-7.70) X 10*3/uL Lymphocytes # 0.43 L (0.90-5.00) X 10*3/uL PT (9.0-12.0) sec INR (<1.2) Sodium 132 L (135-145) mmol/L Carbon Dioxide 19.5 L (20.0-27.5) mmol/L Anion Gap 8.80 L (10.00-18.00) mmol/L Glucose 112 H (70-110) mg/dL Calcium 7.6 L (8.7-10.3) mg/dL Total Bilirubin 13.70 H* (0.30-1.20) mg/dL AST 50 H (13-35) U/L Ammonia 116 H (<30) umol/L Total Protein 5.4 L (6.2-8.2) g/dL Albumin 2.4 L (3.8-4.9) g/dL Albumin/Globulin Ratio 0.80 L (1.60-3.17) g/dL Crossmatch 01/29/23 01/29/23 01/30/23 Range/Units 13:30 18:14 09:20 WBC (4.50-10.00) X 10*3/uL RBC (4.10-5.20) X 10*6/uL Hgb (12.0-15.0) g/dL Hct (37.2-46.3) % MCV (80.0-97.0) fL MCH (27.0-32.0) pg Plt Count (140-440) X 10*3/uL Plt Count Comment Neutrophils # (1.80-7.70) X 10*3/uL Lymphocytes # (0.90-5.00) X 10*3/uL PT 18.5 H 17.7 H (9.0-12.0) sec INR 1.9 H 1.8 H (<1.2) Sodium (135-145) mmol/L Carbon Dioxide (20.0-27.5) mmol/L Anion Gap (10.00-18.00) mmol/L Glucose (70-110) mg/dL Calcium (8.7-10.3) mg/dL Total Bilirubin (0.30-1.20) mg/dL AST (13-35) U/L Ammonia (<30) umol/L Total Protein (6.2-8.2) g/dL Albumin (3.8-4.9) g/dL Albumin/Globulin Ratio (1.60-3.17) g/dL Crossmatch See Detail
[2023-01-31] MEDS: PANTOPRAZOLE 40 MG TABLET PO SCH (10:59)
[2023-01-31] MEDS: LACTULOSE 20 GM/30 ML CUP PO SCH ×3 (10:59→21:03)
[2023-01-31] MEDS: FUROSEMIDE 40 MG TAB PO SCH (10:59)
[2023-01-31] MEDS: SPIRONOLACTONE 25 MG TAB PO SCH (11:00)
[2023-01-31 11:45] LABS: African American GFR (CKD) 130.1 (60.0-200.0); Albumin 2.5 g/dL (3.8-4.9); Albumin/Globulin Ratio 0.96 (1.60-3.17); Anion Gap 5.4 mmol/L (10.00-18.00); BUN/Creat Ratio 15.86 Ratio (12.00-20.00); Blood Urea Nitrogen 11.1 mg/dL (9.0-27.0); Calcium 7.7 mg/dL (8.7-10.3); Carbon Dioxide 22.6 mmol/L (20.0-27.5); Globulin 2.6 g/dL (1.6-3.3); Non-African American GFR(CKD) 112.3 (60.0-200.0); Potassium 3.5 mmol/L (3.5-5.5); Total Bilirubin 13.4 mg/dL (0.30-1.20); Total Protein 5.1 g/dL (6.2-8.2)
--- NOTE | 2023-01-31 12:42 | P.PN ---
Subjective Progress Note Date: 01/31/23 Principal diagnosis: This is a pleasant 37-year-old female with a known history of alcoholic liver disease who follows with [facility] who presented to the emergency d [facility] on 01/27/2023 with complaints of abdominal distention.. Patient states she was diagnosed with cirrhosis of the liver approximately 2 years ago and follows with at the [facility], her last visit was greater than 1 year ago. Patient has long-standing history of alcohol abuse, states her last drink was 11/22/2022. States that she was a heavy daily drinker for at least 10 years. She was admitting herself to [facility] for rehab and due to her abdominal distention they sent her to the emergency department for further evaluation. Her last paracentesis was done on 01/18/2023, and 2 years prior to that. She states that she takes Lasix 40 mg daily, spironolactone 50 mg daily and lactulose 20 g as needed. She states that she tries to take at least 1 dose a day. Patient was noted to be pancytopenic on admission, hyperammonemia, and elevated LFTs. Hemoglobin was 8.1 on admission with a dropped to 6.6 yesterday with platelet count of 32,000. Gastroenterology was consulted for GI bleed. She was given 1 unit of blood, and 1 unit of platelets were ordered. The patient has been jaundiced for quite some time, again however she has not followed up with her liver specialist in felt one year. Abdominal ultrasound reported moderate amount of peritoneal ascites greatest pocket in the left lower quadrant on images. Today's labs WBC 2.4 hemoglobin 7.4 hematocrit 22 platelet count 30,000 INR 1.8 sodium 131 potassium 3.6 BUN 12.5 creatinine 0.7 total bilirubin 14 AST 47 ALT 26 alkaline phosphatase 80 ammonia 129 . Patient scheduled to undergo paracentesis today with interventional radiology. She denies any abdominal pain, no nausea or vomiting. Denies any chest pain or shortness of breath, fevers or chills. Patient denies any black stool or blood in her stool, no history of GI bleed. Labs 01/29/23 WBC 2.5 hemoglobin 6.6 hematocrit 20.3 platelet count 32,000 INR 1.9 sodium 132 potassium 3.8 BUN 10 creatinine 0.7 glucose 112 total bilirubin 13.7 AST 50 ALT 24 alkaline phosphatase 66 01/31/2023: Patient seen and examined today as a follow-up for alcoholic liver cirrhosis. Patient underwent paracentesis yesterday was 6.1 L of fluid removed. States she's feeling much better today. She is more awake and alert. Ammonia level continues to decline. Patient states she had 4-5 bowel movements yesterday. She is denying any abdominal pain, nausea, or vomiting. Today's labs sodium 131 potassium 3.5 BUN 11 creatinine 0.7 total bilirubin 13.4 AST 45 ALT 21 alkaline phosphatase 59 ammonia 56. Objective - Vital Signs Vital signs: Vital Signs Temp 98.5 F 01/31/23 07:45 Pulse 85 01/31/23 07:45 Resp 16 01/31/23 07:45 BP 93/52 01/31/23 07:45 Pulse Ox 98 01/31/23 07:45 FiO2 Intake & Output 01/30/23 01/31/23 01/31/23 18:59 06:59 18:59 Intake Total 775 Balance 775 Intake: Oral 510 Blood Product 265 Platelet Pheresis Pas 265 Psoralen Unit [id number] Other: Voiding Method Toilet Toilet Toilet Diaper Diaper Diaper # Voids 1 2 # Bowel Movements 1 2 - Exam General appearance: The patient is more alert alert, oriented, appears in no acute distress. HET: Head is normocephalic and atraumatic. Conjunctiva pink. Sclera deeply icteric. Neck: Supple without lymphadenopathy. Abdomen: Soft, nontender, nondistended with bowel sounds. No guarding or rigidity. Extremities: Normal skin color and turgor. Bilateral lower extremity edema. Skin: No rashes, jaundice. Neurological: No focal deficits. Alert and oriented. - Labs CBC & Chem 7: 01/30/23 05:36 01/31/23 07:50 Labs: Abnormal Lab Results - Last 24 Hours (Table) 01/30/23 01/30/23 01/30/23 Range/Units 05:36 05:36 05:36 WBC 2.49 L (4.50-10.00) X 10*3/uL RBC 1.98 L (4.10-5.20) X 10*6/uL Hgb 7.4 L (12.0-15.0) g/dL Hct 22.7 L (37.2-46.3) % MCV 114.6 H (80.0-97.0) fL MCH 37.4 H (27.0-32.0) pg Plt Count 30 L (140-440) X 10*3/uL Plt Count Comment A Neutrophils # 1.67 L (1.80-7.70) X 10*3/uL Lymphocytes # 0.34 L (0.90-5.00) X 10*3/uL PT (9.0-12.0) sec INR (<1.2) Sodium 131 L (135-145) mmol/L Carbon Dioxide 18.5 L (20.0-27.5) mmol/L Anion Gap 9.50 L (10.00-18.00) mmol/L Glucose 142 H (70-110) mg/dL Calcium 7.7 L (8.7-10.3) mg/dL TIBC 130 L (228-460) ug/dL % Saturation 81.41 H (12.00-45.00) Transferrin 93.0 L (204.0-354.0) mg/dL Ferritin 359.0 H (10.0-291.0) ng/mL Total Bilirubin 14.00 H* (0.30-1.20) mg/dL AST 47 H (13-35) U/L Ammonia (<30) umol/L Total Protein 5.1 L (6.2-8.2) g/dL Albumin 2.3 L (3.8-4.9) g/dL Albumin/Globulin Ratio 0.82 L (1.60-3.17) g/dL Vitamin B12 1614.0 H (200.0-944.0) pg/mL 01/30/23 01/30/23 01/31/23 Range/Units 09:20 09:20 07:50 WBC (4.50-10.00) X 10*3/uL RBC (4.10-5.20) X 10*6/uL Hgb (12.0-15.0) g/dL Hct (37.2-46.3) % MCV (80.0-97.0) fL MCH (27.0-32.0) pg Plt Count (140-440) X 10*3/uL Plt Count Comment Neutrophils # (1.80-7.70) X 10*3/uL Lymphocytes # (0.90-5.00) X 10*3/uL PT 17.7 H (9.0-12.0) sec INR 1.8 H (<1.2) Sodium (135-145) mmol/L Carbon Dioxide (20.0-27.5) mmol/L Anion Gap (10.00-18.00) mmol/L Glucose (70-110) mg/dL Calcium (8.7-10.3) mg/dL TIBC (228-460) ug/dL % Saturation (12.00-45.00) Transferrin (204.0-354.0) mg/dL Ferritin (10.0-291.0) ng/mL Total Bilirubin (0.30-1.20) mg/dL AST (13-35) U/L Ammonia 129 H 56 H (<30) umol/L Total Protein (6.2-8.2) g/dL Albumin (3.8-4.9) g/dL Albumin/Globulin Ratio (1.60-3.17) g/dL Vitamin B12 (200.0-944.0) pg/mL Microbiology - Last 24 Hours (Table) 01/30/23 13:19 Gram Stain - Preliminary Paracentesis Fluid Body Fluid Culture - Preliminary 01/30/23 13:19 Anaerobic Culture - Preliminary Paracentesis Fluid Assessment and Plan (1) Decompensation of cirrhosis of liver Narrative/Plan: 37-year-old female with long-standing history of alcohol abuse diagnosed with alcoholic cirrhosis approximately 2 years ago. Patient was trying to be admitted to [facility] however they sent her here due to severe jaundice and ascites. She states follows with liver specialist A [facility], last seen little over a year ago. Patient had heavy alcohol use greater than 10 years states her last drink was 11/22/2022. Paracentesis last on 01/18/2023, prior to that 2 years ago. Patient with decompensated cirrhosis of the liver likely all related to alcoholic liver disease. Patient labs consistent with underlying hepatocellular disease, pancytopenia and coagulopathy. Patient un derwent paracentesis with 6.1 L removed. Continue with alcohol abstinence, will increase Aldactone to 100 mg daily, continue Lasix 40 mg daily. Continue lactulose 20 g 3 times a day, may need to consider adding Xifaxan as ammonia does not improve. Recommend close outpatient follow-up with [facility] tray line worker. Current Visit: Yes Status: Acute Code(s): K72.90 - HEPATIC FAILURE, UNSPECIFIED WITHOUT COMA; K74.60 - UNSPECIFIED CIRRHOSIS OF LIVER SNOMED Code(s): 662877204 (2) Alcohol abuse Current Visit: Yes Status: Acute Code(s): F10.10 - ALCOHOL ABUSE, UNCOMPLICATED SNOMED Code(s): 06585594 (3) Ascites Narrative/Plan: Status post paracentesis 6.1 L removed 01/30/2023 Current Visit: Yes Status: Acute Code(s): R18.8 - OTHER ASCITES SNOMED Code(s): 966630671 (4) Hyperammonemia Narrative/Plan: Continue lactulose 20 g 3 times a day, ammonia level improving. Discussed with patient importance of taking lactulose 2-3 times a day with goal of bowel moveme nt 3-4 daily, patient verbalized understanding. Current Visit: Yes Status: Acute Code(s): E72.20 - DISORDER OF UREA CYCLE METABOLISM, UNSPECIFIED SNOMED Code(s): 1548766 (5) Pancytopenia Narrative/Plan: Due to underlying liver disease, patient was transfused 1 unit PRBC and 1 unit of platelets Current Visit: Yes Status: Acute Code(s): D61.818 - OTHER PANCYTOPENIA SNOMED Code(s): 430843880 (6) Hypercoagulopathy Narrative/Plan: Due to underlying liver disease Current Visit: Yes Status: Acute Code(s): D68.59 - OTHER PRIMARY THROMBOPHILIA SNOMED Code(s): 93533058 (7) Anemia Narrative/Plan: Iron studies are not consistent with an iron deficiency anemia. Anemia of chronic underlying liver disease Current Visit: Yes Status: Acute Code(s): D64.9 - ANEMIA, UNSPECIFIED SNOMED Code(s): 465905329 Plan: 1. Continue symptomatic and supportive care 2. Low-sodium diet 3. Daily CBC, CMP, INR, ammonia 4. Transfuse for hemoglobin under 7 5. Iron studies ordered and reviewed 6. Continue Lasix 40 mg daily, spironolactone to 100 mg daily 7. Continue lactulose 20 g 3 times a day 8. Monitor for withdrawal symptoms 9. Alcohol abstinence 10. Patient is status post paracentesis, albumin ordered 11. Patient to follow-up with her tray line worker through [facility] 12. Case management consulted, patient would like to return to [facility] after discharge Thank you for this consultation, we will continue to follow. Dr. Bret Wells I agree with the dictator's note, documented as a scribe by Shelly Hoffman.
[2023-01-31 13:28] LABS: HCT 22.1 % (37.2-46.3); HGB 7.3 g/dL (12.0-15.0); MCV 115.1 fL (80.0-97.0); Mean Platelet Volume 11.9 fL (9.5-12.2); NRBC Per 100 WBC 0 /100 WBCS (0.0-0.0); Platelet Count 28 X 10*3/uL (140-440); RBC 1.92 X 10*6/uL (4.10-5.20); WBC 1.73 X 10*3/uL (4.50-10.00)
[2023-01-31 13:29] LABS: Acanthocytes 2+; Immature Platelet Fraction 4.4 % (1.1-6.1)
[2023-01-31] MEDS ORDERED: PHYTONADIONE ORAL 5 MG/5 ML ORAL.SYRG PO STA (19:22)
--- NOTE | 2023-01-31 19:43 | P.PN ---
Subjective Progress Note Date: 01/31/23 This is a pleasant 37-year-old female who was recently admitted with alcoholic liver disease and alcoholic hepatitis being closely monitored with plans for paracentesis today. Patient was scheduled yesterday although elevated INR and low platelets and interventional radiology recommending platelets ordered for transfusion. Paracentesis and will follow-up with INR today. Patient will be undergoing paracentesis which is currently pending. Patient being followed by GI undergoing workup follows with GI out of [facility]. Patient reports her last alcoholic drink was in November of this year and was attempting to go to alcohol rehab center for evaluation for ascites and jaundice. Patient is currently afebrile with no reports of nausea or vomiting noted. She denies chest pain or shortness of breath. Ammonia remains elevated and would recommend lactulose 3 times a day scheduled as needed. 01/31/2023 Patient is seen and evaluated in follow-up today status post paracentesis with approximately 6 L removed. Patient did receive albumin post and is maintained on Aldactone and Lasix. Continue with lactulose 3 times daily and continue to have bowel movements. Patient had multiple bowel movements yesterday and today and ammonia level is improved. Encouraged increased activity as tolerated. Case management following an discussing possible return to [facility] to continue alcohol rehab. Patient to follow-up with her primary specialist at [facility]. Patient is currently afebrile reports to feeling improved and anxious about going. Review of systems: Constitutional: No reports of fatigue, fever, or chills Cardiovascular: No reports of chest pain or palpitations Respiratory: No reports of shortness of breath or cough GI: no reports of nausea, no reports of vomiting : No reports of dysuria or retention Neurovascular: no reports of generalized weakness and does report some lower extremity swelling although feels is slightly improved All medications have been reviewed Active Medications Cyanocobalamin (Cyanocobalamin 500 Mcg Tab) 500 mcg PO DAILY PRN PRN Reason: ENERGY Furosemide (Furosemide 40 Mg Tab) 40 mg PO DAILY [facility] Last Admin: 01/31/23 10:59 Dose: 40 mg Lactulose (Lactulose 20 Gm/30 Ml Cup) 20 gm PO TID [facility] Last Admin: 01/31/23 17:06 Dose: 20 gm Nadolol (Nadolol 20 Mg Tab) 20 mg PO DAILY [facility] Last Admin: 01/31/23 10:59 Dose: 20 mg Naloxone HCl (Naloxone 0.4 Mg/Ml 1 Ml Vial) 0.2 mg IV Q2M PRN PRN Reason: Opioid Reversal Ondansetron HCl (Ondansetron 4 Mg/2 Ml Vial) 4 mg IVP Q8HR PRN PRN Reason: Nausea And Vomiting Pantoprazole Sodium (Pantoprazole 40 Mg Tablet) 40 mg PO DAILY [facility] Last Admin: 01/31/23 10:59 Dose: 40 mg Spironolactone (Spironolactone 25 Mg Tab) 100 mg PO DAILY [facility] Last Admin: 01/31/23 11:00 Dose: 100 mg PHYSICAL EXAMINATION: GENERAL: The patient is alert and oriented x4, Well developed, well nourished. HEENT: Pupils are round and equally reacting to light. EOMI. scleral icterus. No conjunctival pallor. Normocephalic, atraumatic. No pharyngeal erythema. No thyromegaly. CARDIOVASCULAR: S1 and S2 muffled PULMONARY: diminished breath sounds bilaterally with no wheezing or rhonchi noted. ABDOMEN: soft. Nontender on exam. -distended, normoactive bowel sounds. No palpable organomegaly. MUSCULOSKELETAL: No joint swelling or deformity. EXTREMITIES: No cyanosis, clubbing, or pedal edema. Bilateral lower extremity edema noted NEUROLOGICAL: Gross neurological examination did not reveal any focal deficits. SKIN: No rashes. Jaundice Assessment: Acute alcoholic liver cirrhosis and ascites status post paracentesis 01/30/2023 approximately 6 L removed Severe alcoholic hepatitis Anemia, multifactorial most likely secondary to to cirrhosis of the liver Thrombocytopenia Coagulopathy Hyperbilirubinemia Hypoalbuminemia GI prophylaxis DVT prophylaxis Full code Plan: Recommend to continue with current medications and management with GI following Patient underwent paracentesis of approximately 6 L removed yesterday and is status post albumin infusion Patient's hemoglobin is stable above 7 and would recommend follow-up labs Ammonia trending down and will continue lactulose scheduled. Patient had 4-5 loose bowel movements Encouraged increased activity as tolerated Will discuss further with GI about discharge planning and discuss if patient is returning to [facility] for continued rehab, will follow-up with case manage ment with probable discharge in 24 hours Patient will need follow-up with her specialist out of [facility]. Due to multiple complex medical issues, prognosis is guarded The impression and plan of care has been dictated by Madalyn Perkins, nurse practitioner as directed. Dr. Cristhian MD I have performed a history and examination and MDM of this patient, discussed the same with the dictator, and agree with the dictator's assessment and plan as written ,documented as a scribe. Based on total visit time, I have performed more than 50% of the visit. Any additional findings or plans will be noted. Objective - Vital Signs Vital signs: Vital Signs Temp 99.7 F H 01/31/23 19:19 Pulse 91 01/31/23 19:19 Resp 16 01/31/23 19:19 BP 94/54 01/31/23 19:19 Pulse Ox 99 01/31/23 19:19 FiO2 Intake & Output 01/31/23 01/31/23 02/01/23 06:59 18:59 06:59 Intake Total 500 Balance 500 Intake: Oral 500 Other: Voiding Method Toilet Toilet Diaper Diaper # Voids 2 3 # Bowel Movements 2 - Labs CBC & Chem 7: 01/31/23 07:50 01/31/23 07:50 Labs: Abnormal Lab Results - Last 24 Hours (Table) 01/31/23 01/31/23 01/31/23 Range/Units 07:50 07:50 07:50 WBC 1.73 L (4.50-10.00) X 10*3/uL RBC 1.92 L (4.10-5.20) X 10*6/uL Hgb 7.3 L (12.0-15.0) g/dL Hct 22.1 L (37.2-46.3) % MCV 115.1 H (80.0-97.0) fL MCH 38.0 H (27.0-32.0) pg Plt Count 28 L (140-440) X 10*3/uL Plt Count Comment A Sodium 131 L (135-145) mmol/L Anion Gap 5.40 L (10.00-18.00) mmol/L Calcium 7.7 L (8.7-10.3) mg/dL Total Bilirubin 13.40 H* (0.30-1.20) mg/dL AST 45 H (13-35) U/L Ammonia 56 H (<30) umol/L Total Protein 5.1 L (6.2-8.2) g/dL Albumin 2.5 L (3.8-4.9) g/dL Albumin/Globulin Ratio 0.96 L (1.60-3.17) g/dL Microbiology - Last 24 Hours (Table) 01/30/23 13:19 Gram Stain - Preliminary Paracentesis Fluid Body Fluid Culture - Preliminary 01/30/23 13:19 Anaerobic Culture - Preliminary Paracentesis Fluid
[2023-02-01 06:00] LABS: Prothrombin Time 19.3 sec (9.0-12.0)
[2023-02-01] MEDS: SPIRONOLACTONE 25 MG TAB PO SCH (08:37)
[2023-02-01] MEDS: FUROSEMIDE 40 MG TAB PO SCH (08:37)
[2023-02-01] MEDS: PANTOPRAZOLE 40 MG TABLET PO SCH (08:37)
[2023-02-01] MEDS: LACTULOSE 20 GM/30 ML CUP PO SCH ×3 (08:38→21:20)
[2023-02-01 09:13] LABS: African American GFR (CKD) 130.1 (60.0-200.0); Albumin 2.4 g/dL (3.8-4.9); Albumin/Globulin Ratio 1.04 (1.60-3.17); BUN/Creat Ratio 13.29 Ratio (12.00-20.00); Blood Urea Nitrogen 9.3 mg/dL (9.0-27.0); Calcium 7.8 mg/dL (8.7-10.3); Globulin 2.3 g/dL (1.6-3.3); Non-African American GFR(CKD) 112.3 (60.0-200.0); Potassium 3.9 mmol/L (3.5-5.5); Total Bilirubin 11.3 mg/dL (0.30-1.20); Total Protein 4.7 g/dL (6.2-8.2)
[2023-02-01] MEDS ORDERED: PHYTONADIONE ORAL 5 MG/5 ML ORAL.SYRG PO STA (09:36)
[2023-02-01 09:47] LABS: NRBC Per 100 WBC 0 /100 WBCS (0.0-0.0)
[2023-02-01 09:49] LABS: Acanthocytes 2+; Anisocytosis (M) 2+; HCT 21.5 % (37.2-46.3); HGB 6.9 g/dL (12.0-15.0); MCH 37.5 pg (27.0-32.0); MCHC 32.1 g/dL (32.0-37.0); MCV 116.8 fL (80.0-97.0); Macrocytosis (M) 2+; Mean Platelet Volume 11.2 fL (9.5-12.2); Platelet Count 27 X 10*3/uL (140-440); RBC 1.84 X 10*6/uL (4.10-5.20); Rouleaux PRESENT
[2023-02-01] MEDS: RIFAXIMIN 550 MG TABLET PO SCH ×2 (10:31→21:20)
--- NOTE | 2023-02-01 14:16 | P.PN ---
Subjective Progress Note Date: 02/01/23 Principal diagnosis: This is a pleasant 37-year-old female with a known history of alcoholic liver disease who follows with [facility] who presented to the emergency d [facility] on 01/27/2023 with complaints of abdominal distention.. Patient states she was diagnosed with cirrhosis of the liver approximately 2 years ago and follows with at the [facility], her last visit was greater than 1 year ago. Patient has long-standing history of alcohol abuse, states her last drink was 11/22/2022. States that she was a heavy daily drinker for at least 10 years. She was admitting herself to [facility] for rehab and due to her abdominal distention they sent her to the emergency department for further evaluation. Her last paracentesis was done on 01/18/2023, and 2 years prior to that. She states that she takes Lasix 40 mg daily, spironolactone 50 mg daily and lactulose 20 g as needed. She states that she tries to take at least 1 dose a day. Patient was noted to be pancytopenic on admission, hyperammonemia, and elevated LFTs. Hemoglobin was 8.1 on admission with a dropped to 6.6 yesterday with platelet count of 32,000. Gastroenterology was consulted for GI bleed. She was given 1 unit of blood, and 1 unit of platelets were ordered. The patient has been jaundiced for quite some time, again however she has not followed up with her liver specialist in [place] one year. Abdominal ultrasound reported moderate amount of peritoneal ascites greatest pocket in the left lower quadrant on images. Today's labs WBC 2.4 hemoglobin 7.4 hematocrit 22 platelet count 30,000 INR 1.8 sodium 131 potassium 3.6 BUN 12.5 creatinine 0.7 total bilirubin 14 AST 47 ALT 26 alkaline phosphatase 80 ammonia 129 . Patient scheduled to undergo paracentesis today with interventional radiology. She denies any abdominal pain, no nausea or vomiting. Denies any chest pain or shortness of breath, fevers or chills. Patient denies any black stool or blood in her stool, no history of GI bleed. Labs 01/29/23 WBC 2.5 hemoglobin 6.6 hematocrit 20.3 platelet count 32,000 INR 1.9 sodium 132 potassium 3.8 BUN 10 creatinine 0.7 glucose 112 total bilirubin 13.7 AST 50 ALT 24 alkaline phosphatase 66 01/31/2023: Patient seen and examined today as a follow-up for alcoholic liver cirrhosis. Patient underwent paracentesis yesterday was 6.1 L of fluid removed. States she's feeling much better today. She is more awake and alert. Ammonia level continues to decline. Patient states she had 4-5 bowel movements yesterday. She is denying any abdominal pain, nausea, or vomiting. Today's labs sodium 131 potassium 3.5 BUN 11 creatinine 0.7 total bilirubin 13.4 AST 45 ALT 21 alkaline phosphatase 59 ammonia 56. This is a pleasant 37-year-old female with a known history of alcoholic liver disease who follows with [facility] who presented to the emergency department on 01/27/2023 with complaints of abdominal distention.. Patient states she was diagnosed with cirrhosis of the liver approximately 2 years ago and follows with at the [facility], her last visit was greater than 1 year ago. Patient has long-standing history of alcohol abuse, states her last drink was 11/22/2022. States that she was a heavy daily drinker for at least 10 years. She was admitting herself to [facility] for rehab and due to her abdominal distention they sent her to the emergency department for further evaluation. Her last paracentesis was done on 01/18/2023, and 2 years prior to that. She states that she takes Lasix 40 mg daily, spironolactone 50 mg daily and lactulose 20 g as needed. She states that she tries to take at least 1 dose a day. Patient was noted to be pancytopenic on admission, hyperammonemia, and elevated LFTs. Hemoglobin was 8.1 on admission with a dropped to 6.6 yesterday with platelet count of 32,000. Gastroenterology was consulted for GI bleed. She was given 1 unit of blood, and 1 unit of platelets were ordered. The patient has been jaundiced for quite some time, again however she has not followed up with her liver specialist in [place] one year. Abdominal ultrasound reported moderate amount of peritoneal ascites greatest pocket in the left lower quadrant on images. Today's labs WBC 2.4 hemoglobin 7.4 hematocrit 22 platelet count 30,000 INR 1.8 sodium 131 potassium 3.6 BUN 12.5 creatinine 0.7 total bilirubin 14 AST 47 ALT 26 alkaline phosphatase 80 ammonia 129 . Patient scheduled to undergo paracentesis today with interventional radiology. She denies any abdominal pain, no nausea or vomiting. Denies any chest pain or shortness of breath, fevers or chills. Patient denies any black stool or blood in her stool, no history of GI bleed. Labs 01/29/23 WBC 2.5 hemoglobin 6.6 hematocrit 20.3 platelet count 32,000 INR 1.9 sodium 132 potassium 3.8 BUN 10 creatinine 0.7 glucose 112 total bilirubin 13.7 AST 50 ALT 24 alkaline phosphatase 66 01/31/2023: Patient seen and examined today as a follow-up for alcoholic liver cirrhosis. Patient underwent paracentesis yesterday was 6.1 L of fluid removed. States she's feeling much better today. She is more awake and alert. Ammonia level continues to decline. Patient states she had 4-5 bowel movements yesterday. She is denying any abdominal pain, nausea, or vomiting. Today's labs sodium 131 potassium 3.5 BUN 11 creatinine 0.7 total bilirubin 13.4 AST 45 ALT 21 alkaline phosphatase 59 ammonia 56. 02/01/2023: The patient was seen and examined today for follow-up of alcoholic liver cirrhosis. Patient states she is feeling more fatigued and tired today. States that she does not have much energy. She denies any abdominal pain, nausea or vomiting. Denies any blood in her stool or black stool. She had a n increase in her ammonia back up to 134 today. She states she had 5 or 6 bowel movements at least yesterday. Patient also had a drop in her hemoglobin is 6.9 hematocrit 20 with 1 platelet count 27,000 INR 2.0 sodium 133 potassium 3.9 BUN 10.3 creatinine 0.7 total bilirubin 11.3 AST 50 ALT 22 alkaline phosphatase 67 Objective - Vital Signs Vital signs: Vital Signs Temp 98.6 F 02/01/23 08:29 Pulse 84 02/01/23 08:29 Resp 20 02/01/23 08:29 BP 122/79 02/01/23 08:29 Pulse Ox 99 02/01/23 08:29 FiO2 Intake & Output 01/31/23 02/01/23 02/01/23 18:59 06:59 18:59 Intake Total 500 500 Balance 500 500 Intake: Oral 500 500 Other: Voiding Method Toilet Toilet Toilet Diaper Diaper Diaper # Voids 3 1 # Bowel Movements 1 - Exam General appearance: The patient is more alert alert, oriented, appears in no acute distress. HET: Head is normocephalic and atraumatic. Conjunctiva pink. Sclera deeply icteric. Neck: Supple without lymphadenopathy. Abdomen: Soft, nontender, nondistended with bowel sounds. No guarding or rigidity. Extremities: Normal skin color and turgor. Bilateral lower extremity edema. Skin: No rashes, jaundice. Neurological: No focal deficits. Alert and oriented. - Labs CBC & Chem 7: 02/01/23 05:19 02/01/23 05:19 Labs: Abnormal Lab Results - Last 24 Hours (Table) 01/29/23 01/31/23 01/31/23 Range/Units 13:30 07:50 07:50 WBC 1.73 L (4.50-10.00) X 10*3/uL RBC 1.92 L (4.10-5.20) X 10*6/uL Hgb 7.3 L (12.0-15.0) g/dL Hct 22.1 L (37.2-46.3) % MCV 115.1 H (80.0-97.0) fL MCH 38.0 H (27.0-32.0) pg Plt Count 28 L (140-440) X 10*3/uL Plt Count Comment A PT (9.0-12.0) sec INR (<1.2) Sodium 131 L (135-145) mmol/L Anion Gap 5.40 L (10.00-18.00) mmol/L Glucose (70-110) mg/dL Calcium 7.7 L (8.7-10.3) mg/dL Total Bilirubin 13.40 H* (0.30-1.20) mg/dL AST 45 H (13-35) U/L Ammonia (<30) umol/L Total Protein 5.1 L (6.2-8.2) g/dL Albumin 2.5 L (3.8-4.9) g/dL Albumin/Globulin Ratio 0.96 L (1.60-3.17) g/dL Crossmatch See Detail 02/01/23 02/01/23 02/01/23 Range/Units 05:19 05:19 05:19 WBC 1.70 L (4.50-10.00) X 10*3/uL RBC 1.84 L (4.10-5.20) X 10*6/uL Hgb 6.9 L* (12.0-15.0) g/dL Hct 21.5 L (37.2-46.3) % MCV 116.8 H (80.0-97.0) fL MCH 37.5 H (27.0-32.0) pg Plt Count 27 L (140-440) X 10*3/uL Plt Count Comment A PT 19.3 H (9.0-12.0) sec INR 2.0 H (<1.2) Sodium 133 L (135-145) mmol/L Anion Gap 6.00 L (10.00-18.00) mmol/L Glucose 123 H (70-110) mg/dL Calcium 7.8 L (8.7-10.3) mg/dL Total Bilirubin 11.30 H (0.30-1.20) mg/dL AST 50 H (13-35) U/L Ammonia (<30) umol/L Total Protein 4.7 L (6.2-8.2) g/dL Albumin 2.4 L (3.8-4.9) g/dL Albumin/Globulin Ratio 1.04 L (1.60-3.17) g/dL Crossmatch 02/01/23 Range/Units 05:19 WBC (4.50-10.00) X 10*3/uL RBC (4.10-5.20) X 10*6/uL Hgb (12.0-15.0) g/dL Hct (37.2-46.3) % MCV (80.0-97.0) fL MCH (27.0-32.0) pg Plt Count (140-440) X 10*3/uL Plt Count Comment PT (9.0-12.0) sec INR (<1.2) Sodium (135-145) mmol/L Anion Gap (10.00-18.00) mmol/L Glucose (70-110) mg/dL Calcium (8.7-10.3) mg/dL Total Bilirubin (0.30-1.20) mg/dL AST (13-35) U/L Ammonia 134 H (<30) umol/L Total Protein (6.2-8.2) g/dL Albumin (3.8-4.9) g/dL Albumin/Globulin Ratio (1.60-3.17) g/dL Crossmatch Microbiology - Last 24 Hours (Table) 01/30/23 13:19 Gram Stain - Preliminary Paracentesis Fluid Body Fluid Culture - Preliminary Assessment and Plan (1) Decompensation of cirrhosis of liver Narrative/Plan: 37-year-old female with long-standing history of alcohol abuse diagnosed with alcoholic cirrhosis approximately 2 years ago. Patient was trying to be admitted to [facility]hab however they sent her here due to severe jaundice and ascites. She states follows with liver specialist [facility], last seen little over a year ago. Patient had heavy alcohol use greater than 10 years states her last drink was 11/22/2022. Paracentesis last on 01/18/2023, prior to that 2 years ago. Patient with decompensated cirrhosis of the liver likely all related to alcoholic liver disease. Patient labs consistent with underlying hepatocellular disease, pancytopenia and coagulopathy. Patient underwent paracentesis with 6.1 L removed. Continue with alcohol abstinence, will increase Aldactone to 100 mg daily, continue Lasix 40 mg daily. Continue lactulose 20 g 3 times a day, may need to consider adding Xifaxan as ammonia does not improve. Recommend close outpatient follow-up with [facility]. Current Visit: Yes Status: Acute Code(s): K72.90 - HEPATIC FAILURE, UNSPECIFIED WITHOUT COMA; K74.60 - UNSPECIFIED CIRRHOSIS OF LIVER SNOMED Code(s): 519953747 (2) Alcohol abuse Current Visit: Yes Status: Acute Code(s): F10.10 - ALCOHOL ABUSE, UNCOMPLICATED SNOMED Code(s): 70595189 (3) Ascites Narrative/Plan: Status post paracentesis 6.1 L removed 01/30/2023 Current Visit: Yes Status: Acute Code(s): R18.8 - OTHER ASCITES SNOMED Code(s): 930235357 (4) Hyperammonemia Narrative/Plan: Continue lactulose 20 g 3 times a day, ammonia level improving. Discussed with patient importance of taking lactulose 2-3 times a day with goal of bowel movement 3-4 daily, patient verbalized understanding. Patient continues to have upward trend of ammonia level even after lactulose 3 times a day with several bowel movements. Will add side packs and 550 mg twice a day Current Visit: Yes Status: Acute Code(s): E72.20 - DISORDER OF UREA CYCLE METABOLISM, UNSPECIFIED SNOMED Code(s): 2029608 (5) Pancytopenia Narrative/Plan: Due to underlying liver disease. Patient transfused PRBC and platelets. Hematology consulted for further evaluation and treatment Current Visit: Yes Status: Acute Code(s): D61.818 - OTHER PANCYTOPENIA SNOMED Code(s): 603994569 (6) Hypercoagulopathy Narrative/Plan: Due to underlying liver disease Current Visit: Yes Status: Acute Code(s): D68.59 - OTHER PRIMARY THROMBOPHILIA SNOMED Code(s): 06871923 (7) Anemia Narrative/Plan: Iron studies are not consistent with an iron deficiency anemia. Anemia of chronic underlying liver disease Current Visit: Yes Status: Acute Code(s): D64.9 - ANEMIA, UNSPECIFIED SNOMED Code(s): 505451807 Plan: 1. Continue symptomatic and supportive care 2. Low-sodium diet 3. PRBC, platelets ordered, agree with vitamin K 4. Daily CBC, CMP, INR, ammonia 5. Transfuse for hemoglobin under 7 6. Iron studies ordered and reviewed 7. Continue Lasix 40 mg daily, spironolactone to 100 mg daily 8. Continue lactulose 20 g 3 times a day, will add Xifaxan 550 mg twice a day 9. Monitor for withdrawal symptoms 10. Alcohol abstinence 11. Patient is status post paracentesis, albumin ordered 12. Patient to follow-up with her [facility] through [facility] 13. Hematology consulted for pancytopenia Thank you for this consultation, we will continue to follow. Dr. Bret Wells I agree with the dictator's note, documented as a scribe by Shelly Hoffman.
[2023-02-01 15:23] LABS: % Iron Saturation 85.02 (12.00-45.00)
--- NOTE | 2023-02-01 18:12 | P.CONS ---
History of Present Illness - Reason for Consult Consult date: 02/01/23 pancytopenia Requesting physician: Shelly Denton - Chief Complaint ascites/liver failure - History of Present Illness Patient is a 37-year-old female with a known history of alcoholic liver cirrhosis, ascites who hasd a recent paracentesis on 01/19/2023 at [facility], and anemia. We were consulted for pancytopenia. Pt reports last drink was in November 2022. [facility] Patient presented to ER with complaints of abdominal distention and paracentesis. Patient states she tried to check in the [place] but upon intake was sent to the hospital due to ascites. Patient denies SOB, chest pain, abdominal pain, n/v/d, any bleeding, fever and chills. Denies any recent illnesses. She had paracentesis 2 days ago, with 6.1L of fluid removed. GI following Labs revealed WBC 1.7, hemoglobin 6.9 and platelets 27,000. 1 unit of PRBCs and platelets have been ordered. INR 2.0, PO Vitamin K ordered Review of Systems 10 point ROS is negative except as stated in HPI Past Medical History Past Medical History: Liver Disease Additional Past Medical History / Comment(s): Liver failure, ETOH abuse, Anemia History of Any Multi-Drug Resistant Organisms: None Reported Past Surgical History: No Surgical Hx Reported Additional Past Surgical History / Comment(s): 2 paracentesis, last paracentesis 01/19 at [facility] Past Anesthesia/Blood Transfusion Reactions: No Reported Reaction Past Psychological History: No Psychological Hx Reported Smoking Status: Never smoker Past Alcohol Use History: Abuse Past Drug Use History: None Reported - Past Family History Father Family Medical History: No Reported History Mother Additional Family Medical History / Comment(s): Anemia Medications and Allergies Home Medications Medication Instructions Recorded Confirmed Type Cyanocobalamin [Vitamin B-12] 500 mcg PO DAILY PRN 01/27/23 01/27/23 History Furosemide [Lasix] 40 mg PO DAILY 01/27/23 01/27/23 History Lactulose 20 gm PO TID PRN 01/27/23 01/27/23 History Omeprazole [PriLOSEC] 20 mg PO DAILY 01/27/23 01/27/23 History Spironolactone [Aldactone] 50 mg PO DAILY 01/27/23 01/27/23 History nadoloL [Corgard] 20 mg PO DAILY 01/27/23 01/27/23 History Allergies Allergy/AdvReac Type Severity Reaction Status Date / Time No Known Allergies Allergy Verified 01/27/23 12:18 Physical Exam Vitals: Vital Signs Temp Pulse Pulse Resp BP BP Pulse Ox 02/01/23 15:42 78 96/61 100 02/01/23 15:22 75 96/57 100 02/01/23 15:12 747 H 101/60 100 02/01/23 14:02 98.4 F 74 109/65 100 02/01/23 11:59 80 108/67 100 02/01/23 11:39 98.2 F 73 110/63 100 02/01/23 11:30 99.3 F 80 105/63 94 L 02/01/23 08:29 98.6 F 84 20 122/79 99 02/01/23 07:13 98.5 F 83 16 116/57 100 02/01/23 02:09 98.9 F 94 16 106/62 100 01/31/23 19:55 16 01/31/23 19:19 99.7 F H 91 16 94/54 99 Intake and Output 02/01/23 02/01/23 02/01/23 06:59 14:59 22:59 Intake Total 500 310 0 Balance 500 310 0 Intake: Oral 500 Blood Product 310 0 Platelet Pheresis Pas 0 Psoralen Unit [id number] Rc As-1 Unit 310 [id number] Other: Voiding Method Toilet Diaper # Voids 1 # Bowel Movements 1 - Constitutional General appearance: average body habitus, no acute distress - EENT Eyes: EOMI, scleral icterus ENT: hearing grossly normal - Respiratory Respiratory: bilateral: CTA - Cardiovascular Rhythm: regular Heart sounds: normal: S1, S2 Abnormal Heart Sounds: no systolic murmur, no diastolic murmur, no rub, no S3 Gallop, no S4 Gallop, no click, no other - Gastrointestinal General gastrointestinal: distended, no tenderness - Integumentary Integumentary: jaundiced - Neurologic grossly intact - Musculoskeletal Musculoskeletal: strength equal bilaterally - Psychiatric Psychiatric: A&O x's 3, appropriate affect, intact judgment & insight Results CBC & Chem 7: 02/01/23 05:19 02/01/23 05:19 Labs: Abnormal Lab Results - Last 24 Hours (Table) 01/29/23 01/31/23 02/01/23 Range/Units 13:30 07:50 05:19 WBC 1.70 L (4.50-10.00) X 10*3/uL RBC 1.84 L (4.10-5.20) X 10*6/uL Hgb 6.9 L* (12.0-15.0) g/dL Hct 21.5 L (37.2-46.3) % MCV 116.8 H (80.0-97.0) fL MCH 37.5 H (27.0-32.0) pg Plt Count 27 L (140-440) X 10*3/uL Plt Count Comment A PT (9.0-12.0) sec INR (<1.2) Fibrinogen (200-500) mg/dL Sodium (135-145) mmol/L Anion Gap (10.00-18.00) mmol/L Glucose (70-110) mg/dL Calcium (8.7-10.3) mg/dL TIBC 116 L (228-460) ug/dL % Saturation 85.02 H (12.00-45.00) Transferrin 82.5 L (204.0-354.0) mg/dL Ferritin 363.0 H (10.0-291.0) ng/mL Total Bilirubin (0.30-1.20) mg/dL AST (13-35) U/L Ammonia (<30) umol/L Total Protein (6.2-8.2) g/dL Albumin (3.8-4.9) g/dL Albumin/Globulin Ratio (1.60-3.17) g/dL Crossmatch See Detail 02/01/23 02/01/23 02/01/23 Range/Units 05:19 05:19 05:19 WBC (4.50-10.00) X 10*3/uL RBC (4.10-5.20) X 10*6/uL Hgb (12.0-15.0) g/dL Hct (37.2-46.3) % MCV (80.0-97.0) fL MCH (27.0-32.0) pg Plt Count (140-440) X 10*3/uL Plt Count Comment PT 19.3 H (9.0-12.0) sec INR 2.0 H (<1.2) Fibrinogen (200-500) mg/dL Sodium 133 L (135-145) mmol/L Anion Gap 6.00 L (10.00-18.00) mmol/L Glucose 123 H (70-110) mg/dL Calcium 7.8 L (8.7-10.3) mg/dL TIBC (228-460) ug/dL % Saturation (12.00-45.00) Transferrin (204.0-354.0) mg/dL Ferritin (10.0-291.0) ng/mL Total Bilirubin 11.30 H (0.30-1.20) mg/dL AST 50 H (13-35) U/L Ammonia 134 H (<30) umol/L Total Protein 4.7 L (6.2-8.2) g/dL Albumin 2.4 L (3.8-4.9) g/dL Albumin/Globulin Ratio 1.04 L (1.60-3.17) g/dL Crossmatch 02/01/23 Range/Units 05:19 WBC (4.50-10.00) X 10*3/uL RBC (4.10-5.20) X 10*6/uL Hgb (12.0-15.0) g/dL Hct (37.2-46.3) % MCV (80.0-97.0) fL MCH (27.0-32.0) pg Plt Count (140-440) X 10*3/uL Plt Count Comment PT (9.0-12.0) sec INR (<1.2) Fibrinogen 95 L (200-500) mg/dL Sodium (135-145) mmol/L Anion Gap (10.00-18.00) mmol/L Glucose (70-110) mg/dL Calcium (8.7-10.3) mg/dL TIBC (228-460) ug/dL % Saturation (12.00-45.00) Transferrin (204.0-354.0) mg/dL Ferritin (10.0-291.0) ng/mL Total Bilirubin (0.30-1.20) mg/dL AST (13-35) U/L Ammonia (<30) umol/L Total Protein (6.2-8.2) g/dL Albumin (3.8-4.9) g/dL Albumin/Globulin Ratio (1.60-3.17) g/dL Crossmatch Microbiology - Last 24 Hours (Table) 01/30/23 13:19 Anaerobic Culture - Preliminary Paracentesis Fluid 01/30/23 13:19 Gram Stain - Preliminary Paracentesis Fluid Body Fluid Culture - Preliminary US - abdomen: report reviewed Assessment and Plan (1) Cirrhosis of liver with ascites Current Visit: Yes Status: Acute Priority: High Code(s): K74.60 - UNSPECIFIED CIRRHOSIS OF LIVER; R18.8 - OTHER ASCITES SNOMED Code(s): 67112995 (2) Pancytopenia Current Visit: Yes Status: Acute Priority: High Code(s): D61.818 - OTHER PANCYTOPENIA SNOMED Code(s): 867936382 Plan: Ascites/Liver failure: -GI following. -She had paracentesis 2 days ago, with 6.1L of fluid removed. GI reports patient is stable, and do not plan to transfer to [facility] at this time -INR 2.0, PO Vitamin K ordered. Will repeat coags daily. If INR greater than 1.5 will give IV vitamin K. -DIC workup ordered Pancytopenia: -WBC 1.7, hemoglobin 6.9 and platelets 27,000. 1 unit of PRBCs and platelets have been ordered. -Iron studies repeated on pre-transfusion blood, as previous iron studies were obtained post-transfusion and likely are altered lab values -B12 and folate normal. She is being supplemented with Vitamin B12, will add folate -Pancytopenia very likely due to ETOH abuse and liver failure. No reports of bleeding -Will continue to monitor counts -Please transfuse for hemoglobin less than 7 or if symptomatic. Please transfuse for platelets less than 50,000 or if symptomatic attests: I have performed H&P and developed impression and plan of care for patient, discussed with dictator. I agree with dictated note, documented as a scribe
--- NOTE | 2023-02-01 19:21 | P.PN ---
Subjective Progress Note Date: 02/01/23 This is a pleasant 37-year-old female who was recently admitted with alcoholic liver disease and alcoholic hepatitis being closely monitored with plans for paracentesis today. Patient was scheduled yesterday although elevated INR and low platelets and interventional radiology recommending platelets ordered for transfusion. Paracentesis and will follow-up with INR today. Patient will be undergoing paracentesis which is currently pending. Patient being followed by GI undergoing workup follows with GI out of [facility]. Patient reports her last alcoholic drink was in November of this year and was attempting to go to alcohol rehab center for evaluation for ascites and jaundice. Patient is currently afebrile with no reports of nausea or vomiting noted. She denies chest pain or shortness of breath. Ammonia remains elevated and would recommend lactulose 3 times a day scheduled as needed. 01/31/2023 Patient is seen and evaluated in follow-up today status post paracentesis with approximately 6 L removed. Patient did receive albumin post and is maintained on Aldactone and Lasix. Continue with lactulose 3 times daily and continue to have bowel movements. Patient had multiple bowel movements yesterday and today and ammonia level is improved. Encouraged increased activity as tolerated. Case management following an discussing possible return to [place] [facility] to continue alcohol rehab. Patient to follow-up with her primary specialist at [facility]. Patient is currently afebrile reports to feeling improved and anxious about going. 02/01/2023 Patient seen and evaluated in follow-up this morning and hemoglobin was found to be 6.9 with platelets being low awaiting a unit of each with GI following. Total bilirubin is slightly improved at 11 and liver functions being monitored closely. We will not have GI coverage after today and GI reporting patient is stable with no need to transfer at this time for tertiary treatment center and will have hematology/oncology evaluate and follow the patient. Will follow up with repeat labs in the a.m. Patient's ammonia level is increased although patient is having multiple bowel movements and has been compliant with lactulose, rifaximin being ordered per GI and will continue. Encouraged increase activity as tolerated and will follow-up with repeat labs in the a.m. Recommend fluid restrictions as well and will continue with Lasix and Aldactone. Review of systems: Constitutional: No reports of fatigue, fever, or chills Cardiovascular: No reports of chest pain or palpitations Respiratory: No reports of shortness of breath or cough GI: no reports of nausea, no reports of vomiting : No reports of dysuria or retention Neurovascular: no reports of generalized weakness and does report some lower extremity swelling although feels is slightly improved All medications have been reviewed Active Medications Cyanocobalamin (Cyanocobalamin 500 Mcg Tab) 500 mcg PO DAILY PRN PRN Reason: ENERGY Folic Acid (Folic Acid 1 Mg Tab) 1 mg PO DAILY [facility] Furosemide (Furosemide 40 Mg Tab) 40 mg PO DAILY [facility] Last Admin: 02/01/23 08:37 Dose: 40 mg Lactulose (Lactulose 20 Gm/30 Ml Cup) 20 gm PO TID [facility] Last Admin: 02/01/23 16:53 Dose: 20 gm Nadolol (Nadolol 20 Mg Tab) 20 mg PO DAILY [facility] Last Admin: 02/01/23 08:37 Dose: 20 mg Naloxone HCl (Naloxone 0.4 Mg/Ml 1 Ml Vial) 0.2 mg IV Q2M PRN PRN Reason: Opioid Reversal Ondansetron HCl (Ondansetron 4 Mg/2 Ml Vial) 4 mg IVP Q8HR PRN PRN Reason: Nausea And Vomiting Pantoprazole Sodium (Pantoprazole 40 Mg Tablet) 40 mg PO DAILY [facility] Last Admin: 02/01/23 08:37 Dose: 40 mg Rifaximin (Rifaximin 550 Mg Tablet) 550 mg PO BID [facility]; Protocol Stop: 03/03/23 10:01 Last Admin: 02/01/23 10:31 Dose: 550 mg Spironolactone (Spironolactone 25 Mg Tab) 100 mg PO DAILY [facility] Last Admin: 02/01/23 08:37 Dose: 100 mg PHYSICAL EXAMINATION: GENERAL: The patient is alert and oriented x4, Well developed, well nourished. HEENT: Pupils are round and equally reacting to light. EOMI. scleral icterus. No conjunctival pallor. Normocephalic, atraumatic. No pharyngeal erythema. No thyromegaly. CARDIOVASCULAR: S1 and S2 muffled PULMONARY: diminished breath sounds bilaterally with no wheezing or rhonchi note d. ABDOMEN: soft. Nontender on exam. -distended, normoactive bowel sounds. No palpable organomegaly. MUSCULOSKELETAL: No joint swelling or deformity. EXTREMITIES: No cyanosis, clubbing, or pedal edema. Bilateral lower extremity edema noted NEUROLOGICAL: Gross neurological examination did not reveal any focal deficits. SKIN: No rashes. Jaundice Assessment: Acute alcoholic liver cirrhosis and ascites status post paracentesis 01/30/2023 approximately 6 L removed Severe alcoholic hepatitis Anemia, multifactorial most likely secondary to to cirrhosis of the liver Thrombocytopenia Coagulopathy Hyperbilirubinemia Hypoalbuminemia GI prophylaxis DVT prophylaxis Full code Plan: Recommend to continue with current medications and management with GI following there will be no GI coverage after today and hematology/oncology has been consulted to follow. No use for transfer to [facility] at this time. Patient underwent paracentesis of approximately 6 L removed this admission Patient's hemoglobin is 6.9 today and will receive a unit of blood and patient also receiving platelets. Recommend follow-up labs in a.m. s Ammonia elevated and will continue lactulose and rifaximin being added. Encouraged increased activity as tolerated Repeat labs in the a.m. Recommend fluid restrictions of 1200 mL per day Patient will need follow-up with her specialist out of [facility]. Due to multiple complex medical issues, prognosis is guarded The impression and plan of care has been dictated by Madalyn Perkins, nurse practitioner as directed. Dr. Cristhian MD I have performed a history and examination and MDM of this patient, discussed the same with the dictator, and agree with the dictator's assessment and plan as written ,documented as a scribe. Based on total visit time, I have performed more than 50% of the visit. Any additional findings or plans will be noted. Objective - Vital Signs Vital signs: Vital Signs Temp 98.6 F 02/01/23 08:29 Pulse 84 02/01/23 08:29 Resp 20 02/01/23 08:29 BP 122/79 02/01/23 08:29 Pulse Ox 99 02/01/23 08:29 FiO2 Intake & Output 01/31/23 02/01/23 02/01/23 18:59 06:59 18:59 Intake Total 500 500 Balance 500 500 Intake: Oral 500 500 Other: Voiding Method Toilet Toilet Toilet Diaper Diaper Diaper # Voids 3 1 # Bowel Movements 1 - Labs CBC & Chem 7: 02/01/23 05:19 02/01/23 05:19 Labs: Abnormal Lab Results - Last 24 Hours (Table) 01/31/23 01/31/23 02/01/23 Range/Units 07:50 07:50 05:19 WBC 1.73 L (4.50-10.00) X 10*3/uL RBC 1.92 L (4.10-5.20) X 10*6/uL Hgb 7.3 L (12.0-15.0) g/dL Hct 22.1 L (37.2-46.3) % MCV 115.1 H (80.0-97.0) fL MCH 38.0 H (27.0-32.0) pg Plt Count 28 L (140-440) X 10*3/uL Plt Count Comment A PT 19.3 H (9.0-12.0) sec INR 2.0 H (<1.2) Sodium 131 L (135-145) mmol/L Anion Gap 5.40 L (10.00-18.00) mmol/L Glucose (70-110) mg/dL Calcium 7.7 L (8.7-10.3) mg/dL Total Bilirubin 13.40 H* (0.30-1.20) mg/dL AST 45 H (13-35) U/L Ammonia (<30) umol/L Total Protein 5.1 L (6.2-8.2) g/dL Albumin 2.5 L (3.8-4.9) g/dL Albumin/Globulin Ratio 0.96 L (1.60-3.17) g/dL 02/01/23 02/01/23 Range/Units 05:19 05:19 WBC (4.50-10.00) X 10*3/uL RBC (4.10-5.20) X 10*6/uL Hgb (12.0-15.0) g/dL Hct (37.2-46.3) % MCV (80.0-97.0) fL MCH (27.0-32.0) pg Plt Count (140-440) X 10*3/uL Plt Count Comment PT (9.0-12.0) sec INR (<1.2) Sodium 133 L (135-145) mmol/L Anion Gap 6.00 L (10.00-18.00) mmol/L Glucose 123 H (70-110) mg/dL Calcium 7.8 L (8.7-10.3) mg/dL Total Bilirubin 11.30 H (0.30-1.20) mg/dL AST 50 H (13-35) U/L Ammonia 134 H (<30) umol/L Total Protein 4.7 L (6.2-8.2) g/dL Albumin 2.4 L (3.8-4.9) g/dL Albumin/Globulin Ratio 1.04 L (1.60-3.17) g/dL Microbiology - Last 24 Hours (Table) 01/30/23 13:19 Gram Stain - Preliminary Paracentesis Fluid Body Fluid Culture - Preliminary
[2023-02-02 07:44] LABS: INR 1.9 (<1.2); Partial Thromboplastin Time 32.4 sec (22.0-30.0); Prothrombin Time 18.3 sec (9.0-12.0)
[2023-02-02] MEDS ORDERED: PHYTONADIONE 5 MG in SODIUM CHLORIDE 0.9% 50 ML IVPB STA (08:09)
[2023-02-02 09:09] VITALS: BMI 27.3
[2023-02-02] MEDS: PANTOPRAZOLE 40 MG TABLET PO SCH (10:00)
[2023-02-02] MEDS: RIFAXIMIN 550 MG TABLET PO SCH ×2 (10:00→21:04)
[2023-02-02] MEDS: FUROSEMIDE 40 MG TAB PO SCH (10:00)
[2023-02-02] MEDS: FOLIC ACID 1 MG TAB PO SCH (10:00)
[2023-02-02] MEDS: LACTULOSE 20 GM/30 ML CUP PO SCH ×3 (10:01→21:04)
[2023-02-02] MEDS: SPIRONOLACTONE 25 MG TAB PO SCH (10:01)
[2023-02-02 10:51] LABS: HCT 23.9 % (37.2-46.3); HGB 7.9 g/dL (12.0-15.0); Immature Platelet Fraction 4.6 % (1.1-6.1); MCH 37.3 pg (27.0-32.0); MCHC 33.1 g/dL (32.0-37.0); MCV 112.7 fL (80.0-97.0); Mean Platelet Volume 12.5 fL (9.5-12.2); NRBC Per 100 WBC 0 /100 WBCS (0.0-0.0); Platelet Count 22 X 10*3/uL (140-440); RBC 2.12 X 10*6/uL (4.10-5.20); WBC 3.53 X 10*3/uL (4.50-10.00)
[2023-02-02] MEDS ORDERED: PHYTONADIONE ORAL 5 MG/5 ML ORAL.SYRG PO STA (11:43)
[2023-02-02 11:44] LABS: Albumin 2.6 g/dL (3.8-4.9); Albumin/Globulin Ratio 1.02 (1.60-3.17); Anion Gap 9.1 mmol/L (10.00-18.00); BUN/Creat Ratio 18.76 Ratio (12.00-20.00); Blood Urea Nitrogen 12.4 mg/dL (9.0-27.0); Calcium 7.7 mg/dL (8.7-10.3); Carbon Dioxide 19.9 mmol/L (20.0-27.5); Globulin 2.5 g/dL (1.6-3.3); Non-African American GFR(CKD) 114.4 (60.0-200.0); Total Bilirubin 14.5 mg/dL (0.30-1.20); Total Protein 5.1 g/dL (6.2-8.2)
[2023-02-02 12:13] LABS: African American GFR (CKD) 132.6 (60.0-200.0)
--- NOTE | 2023-02-02 14:07 | P.PN ---
Subjective Progress Note Date: 02/02/23 Principal diagnosis: ascites/liver failure At today's visit patient is resting comfortable in bed. She is reporting feeling improved today. Denies abdominal pain, nausea, vomiting, diarrhea, fever and chills. Denies any episodes of bleeding. No other complaints at this time. Objective - Vital Signs Vital signs: Vital Signs Temp 98.2 F 02/02/23 11:17 Pulse 82 02/02/23 11:17 Resp 16 02/02/23 11:17 BP 108/63 02/02/23 11:17 Pulse Ox 100 02/02/23 11:17 FiO2 Intake & Output 02/01/23 02/02/23 02/02/23 18:59 06:59 18:59 Intake Total 1336 600 Balance 1336 600 Weight 79.379 kg Intake: Oral 600 Blood Product 1336 Platelet Pheresis Pas 358 Psoralen Unit [id number] Rc As-1 Unit 310 [id number] Other: Voiding Method Toilet Toilet Toilet Diaper Diaper Diaper # Voids 2 - Constitutional General appearance: Present: average body habitus, no acute distress - EENT Eyes: Present: EOMI, scleral icterus ENT: Present: hearing grossly normal - Respiratory Details: breathing is even unlabored - Cardiovascular Details: skin warm and dry - Gastrointestinal General gastrointestinal: Present: distended - Integumentary Integumentary: Present: jaundiced - Neurologic Neurologic Comment(s): grossly intact - Musculoskeletal Musculoskeletal: Present: strength equal bilaterally - Psychiatric Psychiatric: Present: A&O x's 3, appropriate affect, intact judgment & insight - Labs CBC & Chem 7: 02/02/23 06:24 02/02/23 06:24 Labs: Abnormal Lab Results - Last 24 Hours (Table) 01/29/23 01/31/23 02/01/23 Range/Units 13:30 07:50 05:19 WBC (4.50-10.00) X 10*3/uL RBC (4.10-5.20) X 10*6/uL Hgb (12.0-15.0) g/dL Hct (37.2-46.3) % MCV (80.0-97.0) fL MCH (27.0-32.0) pg Plt Count (140-440) X 10*3/uL MPV (9.5-12.2) fL PT (9.0-12.0) sec INR (<1.2) APTT (22.0-30.0) sec Fibrinogen 95 L (200-500) mg/dL Sodium (135-145) mmol/L Carbon Dioxide (20.0-27.5) mmol/L Anion Gap (10.00-18.00) mmol/L Glucose (70-110) mg/dL Calcium (8.7-10.3) mg/dL TIBC 116 L (228-460) ug/dL % Saturation 85.02 H (12.00-45.00) Transferrin 82.5 L (204.0-354.0) mg/dL Ferritin 363.0 H (10.0-291.0) ng/mL Total Bilirubin (0.30-1.20) mg/dL AST (13-35) U/L Ammonia (<30) umol/L Total Protein (6.2-8.2) g/dL Albumin (3.8-4.9) g/dL Albumin/Globulin Ratio (1.60-3.17) g/dL Crossmatch See Detail 02/02/23 02/02/23 02/02/23 Range/Units 06:24 06:24 06:24 WBC 3.53 L (4.50-10.00) X 10*3/uL RBC 2.12 L (4.10-5.20) X 10*6/uL Hgb 7.9 L (12.0-15.0) g/dL Hct 23.9 L (37.2-46.3) % MCV 112.7 H (80.0-97.0) fL MCH 37.3 H (27.0-32.0) pg Plt Count 22 L (140-440) X 10*3/uL MPV 12.5 H (9.5-12.2) fL PT 18.3 H (9.0-12.0) sec INR 1.9 H (<1.2) APTT 32.4 H (22.0-30.0) sec Fibrinogen (200-500) mg/dL Sodium 133 L (135-145) mmol/L Carbon Dioxide 19.9 L (20.0-27.5) mmol/L Anion Gap 9.10 L (10.00-18.00) mmol/L Glucose 143 H (70-110) mg/dL Calcium 7.7 L (8.7-10.3) mg/dL TIBC (228-460) ug/dL % Saturation (12.00-45.00) Transferrin (204.0-354.0) mg/dL Ferritin (10.0-291.0) ng/mL Total Bilirubin 14.50 H* (0.30-1.20) mg/dL AST 57 H (13-35) U/L Ammonia (<30) umol/L Total Protein 5.1 L (6.2-8.2) g/dL Albumin 2.6 L (3.8-4.9) g/dL Albumin/Globulin Ratio 1.02 L (1.60-3.17) g/dL Crossmatch 02/02/23 Range/Units 06:24 WBC (4.50-10.00) X 10*3/uL RBC (4.10-5.20) X 10*6/uL Hgb (12.0-15.0) g/dL Hct (37.2-46.3) % MCV (80.0-97.0) fL MCH (27.0-32.0) pg Plt Count (140-440) X 10*3/uL MPV (9.5-12.2) fL PT (9.0-12.0) sec INR (<1.2) APTT (22.0-30.0) sec Fibrinogen (200-500) mg/dL Sodium (135-145) mmol/L Carbon Dioxide (20.0-27.5) mmol/L Anion Gap (10.00-18.00) mmol/L Glucose (70-110) mg/dL Calcium (8.7-10.3) mg/dL TIBC (228-460) ug/dL % Saturation (12.00-45.00) Transferrin (204.0-354.0) mg/dL Ferritin (10.0-291.0) ng/mL Total Bilirubin (0.30-1.20) mg/dL AST (13-35) U/L Ammonia 49 H (<30) umol/L Total Protein (6.2-8.2) g/dL Albumin (3.8-4.9) g/dL Albumin/Globulin Ratio (1.60-3.17) g/dL Crossmatch Microbiology - Last 24 Hours (Table) 01/30/23 13:19 Gram Stain - Preliminary Paracentesis Fluid Body Fluid Culture - Preliminary 01/30/23 13:19 Anaerobic Culture - Preliminary Paracentesis Fluid Assessment and Plan (1) Cirrhosis of liver with ascites Current Visit: Yes Status: Acute Priority: High Code(s): K74.60 - UNSPECIFIED CIRRHOSIS OF LIVER; R18.8 - OTHER ASCITES SNOMED Code(s): 70765023 (2) Pancytopenia Current Visit: Yes Status: Acute Priority: High Code(s): D61.818 - OTHER PANCYTOPENIA SNOMED Code(s): 212096358 Plan: Ascites/Liver failure: -GI following. -She had paracentesis 3 days ago, with 6.1L of fluid removed. GI reports patient is stable, and do not plan to transfer to [facility] at this time -INR 1.9 today. 2 doses oral Vitamin K have been given over the last 2 days without significant improvement in INR. Will order IV vitamin K. Will repeat coags daily with goal of INR less than 1.5 -Coags elevated, fibrinogen 95, consistent with DIC. Cryoprecipitate ordered Pancytopenia: -1 unit of PRBCs and platelets were given yesterday. Hemoglobin 7.9 today, platelets 22,000. Additional dose of platelets ordered -Iron studies repeated. Requested on pre-transfusion blood, however iron studies were ran on blood post transfusion which makes it difficult to ascertain if there is a true iron deficiency present -B12 and folate normal. She is being supplemented with Vitamin B12, folate added -Pancytopenia very likely due to ETOH abuse and liver failure. No reports of bleeding -Will continue to monitor counts -Please transfuse for hemoglobin less than 7 or if symptomatic. -Please transfuse for platelets less than 50,000 or if symptomatic if INR is greater than 1.5. If INR is less than 1.5, transfuse for platelets less than 10,000 or if symptomatic
--- NOTE | 2023-02-02 23:32 | P.PN ---
Subjective Progress Note Date: 02/02/23 This is a pleasant 37-year-old female who was recently admitted with alcoholic liver disease and alcoholic hepatitis being closely monitored with plans for paracentesis today. Patient was scheduled yesterday although elevated INR and low platelets and interventional radiology recommending platelets ordered for transfusion. Paracentesis and will follow-up with INR today. Patient will be undergoing paracentesis which is currently pending. Patient being followed by GI undergoing workup follows with GI out of [facility]. Patient reports her last alcoholic drink was in November of this year and was attempting to go to alcohol rehab center for evaluation for ascites and jaundice. Patient is currently afebrile with no reports of nausea or vomiting noted. She denies chest pain or shortness of breath. Ammonia remains elevated and would recommend lactulose 3 times a day scheduled as needed. 01/31/2023 Patient is seen and evaluated in follow-up today status post paracentesis with approximately 6 L removed. Patient did receive albumin post and is maintained on Aldactone and Lasix. Continue with lactulose 3 times daily and continue to have bowel movements. Patient had multiple bowel movements yesterday and today and ammonia level is improved. Encouraged increased activity as tolerated. Case management following an discussing possible return to [place] [facility] to continue alcohol rehab. Patient to follow-up with her primary specialist at [facility]. Patient is currently afebrile reports to feeling improved and anxious about going. 02/01/2023 Patient seen and evaluated in follow-up this morning and hemoglobin was found to be 6.9 with platelets being low awaiting a unit of each with GI following. Total bilirubin is slightly improved at 11 and liver functions being monitored closely. We will not have GI coverage after today and GI reporting patient is stable with no need to transfer at this time for tertiary treatment center and will have hematology/oncology evaluate and follow the patient. Will follow up with repeat labs in the a.m. Patient's ammonia level is increased although patient is having multiple bowel movements and has been compliant with lactulose, rifaximin being ordered per GI and will continue. Encouraged increase activity as tolerated and will follow-up with repeat labs in the a.m. Recommend fluid restrictions as well and will continue with Lasix and Aldactone. 02/02/2023 Patient is seen in follow-up today with hematology now following an hemoglobin improved after PRBC although awaiting to receive platelets today. Patient was given a dose of vitamin K IV as INR is 2.0. Patient did have some mild bleeding noted and patient had reported she was scratching at a scab on her face and began bleeding and also had been picking her cuticle and with noted bleeding. Patient encouraged to avoid this as high risk for bleeding. Patient ammonia level improved today and continues to have multiple loose stools. Patient abdomen more distended again today and would recommend interventional radiology consultation for possible paracentesis. Patient did have one 3 days ago with removal of approximately 6 L. Review of systems: Constitutional: No reports of fatigue, fever, or chills Cardiovascular: No reports of chest pain or palpitations Respiratory: No reports of shortness of breath or cough GI: no reports of nausea, no reports of vomiting, reports some increased abdominal distention : No reports of dysuria or retention Neurovascular: no reports of generalized weakness and does report some lower extremity swelling although feels is slightly improved All medications have been reviewed Active Medications Cyanocobalamin (Cyanocobalamin 500 Mcg Tab) 500 mcg PO DAILY PRN PRN Reason: ENERGY Folic Acid (Folic Acid 1 Mg Tab) 1 mg PO DAILY [facility] Last Admin: 02/02/23 10:00 Dose: 1 mg Furosemide (Furosemide 40 Mg Tab) 40 mg PO DAILY [facility] Last Admin: 02/02/23 10:00 Dose: 40 mg Lactulose (Lactulose 20 Gm/30 Ml Cup) 20 gm PO TID [facility] Last Admin: 02/02/23 21:04 Dose: 20 gm Nadolol (Nadolol 20 Mg Tab) 20 mg PO DAILY [facility] Last Admin: 02/02/23 10:01 Dose: 20 mg Naloxone HCl (Naloxone 0.4 Mg/Ml 1 Ml Vial) 0.2 mg IV Q2M PRN PRN Reason: Opioid Reversal Ondansetron HCl (Ondansetron 4 Mg/2 Ml Vial) 4 mg IVP Q8HR PRN PRN Reason: Nausea And Vomiting Pantoprazole Sodium (Pantoprazole 40 Mg Tablet) 40 mg PO DAILY [facility] Last Admin: 02/02/23 10:00 Dose: 40 mg Rifaximin (Rifaximin 550 Mg Tablet) 550 mg PO BID [facility]; Protocol Stop: 03/03/23 10:01 Last Admin: 02/02/23 21:04 Dose: 550 mg Spironolactone (Spironolactone 25 Mg Tab) 100 mg PO DAILY [facility] Last Admin: 02/02/23 10:01 Dose: 100 mg PHYSICAL EXAMINATION: GENERAL: The patient is alert and oriented x4, Well developed, well nourished. HEENT: Pupils are round and equally reacting to light. EOMI. scleral icterus. No conjunctival pallor. Normocephalic, atraumatic. No pharyngeal erythema. No t hyromegaly. CARDIOVASCULAR: S1 and S2 muffled PULMONARY: diminished breath sounds bilaterally with no wheezing or rhonchi noted. ABDOMEN: soft. Nontender on exam. Becoming more distended, tympanic, normoactive bowel sounds. No palpable organomegaly. MUSCULOSKELETAL: No joint swelling or deformity. EXTREMITIES: No cyanosis, clubbing, or pedal edema. Bilateral lower extremity edema noted NEUROLOGICAL: Gross neurological examination did not reveal any focal deficits. SKIN: No rashes. Jaundice Assessment: Acute alcoholic liver cirrhosis and ascites status post paracentesis 01/30/2023 approximately 6 L removed Severe alcoholic hepatitis Anemia, multifactorial most likely secondary to to cirrhosis of the liver Thrombocytopenia Coagulopathy Hyperbilirubinemia Hypoalbuminemia GI prophylaxis DVT prophylaxis Full code Plan: Recommend to continue with current medications and management with GI evaluation although there will be no GI coverage after today and hematology/oncology has been consulted and following. No need for transfer to [facility] at this time. Patient underwent paracentesis of approximately 6 L removed this admission and IR consulted again for possible paracentesis this Sunday Patient's hemoglobin is above 7 today and awaiting to receive platelets. Recommend follow-up labs in a.m. Ammonia improved today and will continue lactulose and rifaximin being added. Encouraged increased activity as tolerated Repeat labs in the a.m. Recommend fluid restrictions of 1200 mL per day Patient will need follow-up with her specialist out of [facility]. Due to multiple complex medical issues, prognosis is guarded The impression and plan of care has been dictated by Madalyn Perkins, nurse practitioner as directed. Dr. Cristhian MD I have performed a history and examination and MDM of this patient, discussed the same with the dictator, and agree with the dictator's assessment and plan as written ,documented as a scribe. Based on total visit time, I have performed more than 50% of the visit. Any additional findings or plans will be noted. Objective - Vital Signs Vital signs: Vital Signs Temp 98.2 F 02/02/23 11:17 Pulse 82 02/02/23 11:17 Resp 16 02/02/23 11:17 BP 108/63 02/02/23 11:17 Pulse Ox 100 02/02/23 11:17 FiO2 Intake & Output 02/01/23 02/02/23 02/02/23 18:59 06:59 18:59 Intake Total 1336 600 Balance 1336 600 Weight 79.379 kg Intake: Oral 600 Blood Product 1336 Platelet Pheresis Pas 358 Psoralen Unit [id number] Rc As-1 Unit 310 [id number] Other: Voiding Method Toilet Toilet Toilet Diaper Diaper Diaper # Voids 2 - Labs CBC & Chem 7: 02/02/23 06:24 02/02/23 06:24 Labs: Abnormal Lab Results - Last 24 Hours (Table) 01/29/23 01/31/23 02/02/23 Range/Units 13:30 07:50 06:24 WBC (4.50-10.00) X 10*3/uL RBC (4.10-5.20) X 10*6/uL Hgb (12.0-15.0) g/dL Hct (37.2-46.3) % MCV (80.0-97.0) fL MCH (27.0-32.0) pg Plt Count (140-440) X 10*3/uL MPV (9.5-12.2) fL PT 18.3 H (9.0-12.0) sec INR 1.9 H (<1.2) APTT 32.4 H (22.0-30.0) sec Sodium (135-145) mmol/L Carbon Dioxide (20.0-27.5) mmol/L Anion Gap (10.00-18.00) mmol/L Glucose (70-110) mg/dL Calcium (8.7-10.3) mg/dL TIBC 116 L (228-460) ug/dL % Saturation 85.02 H (12.00-45.00) Transferrin 82.5 L (204.0-354.0) mg/dL Ferritin 363.0 H (10.0-291.0) ng/mL Total Bilirubin (0.30-1.20) mg/dL AST (13-35) U/L Ammonia (<30) umol/L Total Protein (6.2-8.2) g/dL Albumin (3.8-4.9) g/dL Albumin/Globulin Ratio (1.60-3.17) g/dL Crossmatch See Detail 02/02/23 02/02/23 02/02/23 Range/Units 06:24 06:24 06:24 WBC 3.53 L (4.50-10.00) X 10*3/uL RBC 2.12 L (4.10-5.20) X 10*6/uL Hgb 7.9 L (12.0-15.0) g/dL Hct 23.9 L (37.2-46.3) % MCV 112.7 H (80.0-97.0) fL MCH 37.3 H (27.0-32.0) pg Plt Count 22 L (140-440) X 10*3/uL MPV 12.5 H (9.5-12.2) fL PT (9.0-12.0) sec INR (<1.2) APTT (22.0-30.0) sec Sodium 133 L (135-145) mmol/L Carbon Dioxide 19.9 L (20.0-27.5) mmol/L Anion Gap 9.10 L (10.00-18.00) mmol/L Glucose 143 H (70-110) mg/dL Calcium 7.7 L (8.7-10.3) mg/dL TIBC (228-460) ug/dL % Saturation (12.00-45.00) Transferrin (204.0-354.0) mg/dL Ferritin (10.0-291.0) ng/mL Total Bilirubin 14.50 H* (0.30-1.20) mg/dL AST 57 H (13-35) U/L Ammonia 49 H (<30) umol/L Total Protein 5.1 L (6.2-8.2) g/dL Albumin 2.6 L (3.8-4.9) g/dL Albumin/Globulin Ratio 1.02 L (1.60-3.17) g/dL Crossmatch Microbiology - Last 24 Hours (Table) 01/30/23 13:19 Gram Stain - Preliminary Paracentesis Fluid Body Fluid Culture - Preliminary 01/30/23 13:19 Anaerobic Culture - Preliminary Paracentesis Fluid
--- NOTE | 2023-02-03 06:20 | PN ---
PROGRESS NOTE REQUESTING PHYSICIAN: Dr. Cope SUBJECTIVE: The patient is a 37-year-old pleasant white female with history of alcoholic cirrhosis of the liver and acute alcoholic hepatitis, admitted to the hospital with abdominal distention and altered mental status. Presently on lactulose as well as Xifaxan and her ammonia level is improving, and her mental status has significantly improved. She is status post large-volume paracentesis 2 days ago and 6 L of fluid was removed. She is presently maintained on Lasix 40 mg daily and Aldactone 100 mg daily. She is complaining of some abdominal distention. No nausea or vomiting. No rectal bleeding or melena. She is status post 1 unit of PRBC transfusion yesterday for hemoglobin of 6.9 and platelet infusion. PHYSICAL EXAMINATION: GENERAL: She appears comfortable, no apparent distress. VITAL SIGNS: Stable. Blood pressure is 102/48, pulse rate 78, temperature 97.7. HEENT: Unremarkable. Conjunctivae pink, sclerae icteric. Oral cavity, no lesions. NECK: No JVD or lymph node enlargement. CHEST: Clear to auscultation. HEART: Regular rate and rhythm. ABDOMEN: Distended. Moderate amount of ascites noted. EXTREMITIES: Trace pedal edema. NEURO: She is alert and oriented x3. No focal deficits. LABS: WBC 3.5, hemoglobin 7.9, platelets 22,000. INR 1.9, T bilirubin is 14.5, AST 54, ALT 25, alkaline phosphatase 57. Fluid analysis revealed 41 WBC. IMPRESSION: 1. Acute alcoholic hepatitis superimposed on alcoholic cirrhosis of the liver with decompensation. 2. Anemia secondary to severe chronic advanced liver disease, portal hypertension and hypersplenism. No active GI bleed. 3. Hepatic encephalopathy, presently on Xifaxan and lactulose and gradually improving. Last ammonia level was 49. 4. Ascites, status post large-volume paracentesis 2 days ago and 6 L removed. Currently on Lasix 40 mg daily and Aldactone 100 mg daily. RECOMMENDATIONS: 1. Continue with current diuretic regimen. 2. Low-salt diet. 3. Continue with Xifaxan 550 mg twice daily and lactulose so that she has 3-4 bowel movements daily and titrate the dose. 4. Monitor labs closely. 5. Transfuse blood products as needed. 6. I had a lengthy discussion with the patient regarding guarded prognosis, no GI Service available from tomorrow. MMODL / IJN: [id number] /
[2023-02-03 07:32] LABS: INR 1.7 (<1.2); Partial Thromboplastin Time 31.5 sec (22.0-30.0); Prothrombin Time 16.8 sec (9.0-12.0)
[2023-02-03] MEDS ORDERED: PHYTONADIONE 5 MG in SODIUM CHLORIDE 0.9% 50 ML IVPB STA (07:50)
[2023-02-03] MEDS: FUROSEMIDE 40 MG TAB PO SCH (08:14)
[2023-02-03] MEDS: FOLIC ACID 1 MG TAB PO SCH (08:14)
[2023-02-03] MEDS: LACTULOSE 20 GM/30 ML CUP PO SCH ×3 (08:14→20:38)
[2023-02-03] MEDS: PANTOPRAZOLE 40 MG TABLET PO SCH (08:14)
[2023-02-03] MEDS: RIFAXIMIN 550 MG TABLET PO SCH ×2 (08:14→20:38)
[2023-02-03] MEDS: SPIRONOLACTONE 25 MG TAB PO SCH (08:15)
[2023-02-03 12:37] LABS: Anisocytosis Moderate; Basophils % (A) 0 %; Eosinophils # (A) 0.1 k/uL (0-0.7); Eosinophils % (A) 4 %; HCT 25.3 % (34.0-46.0); HGB 8.4 gm/dL (11.4-16.0); Hypochromasia Slight; Lymphocytes # (A) 0.4 k/uL (1.0-4.8); Lymphocytes % (A) 16 %; MCH 37.7 pg (25.0-35.0); MCHC 33.2 g/dL (31.0-37.0); MCV 113.6 fL (80.0-100.0); Macrocytosis Marked; Mean Platelet Volume 7.5; Monocytes # (A) 0.2 k/uL (0-1.0); Monocytes % (A) 8 %; Neutrophils # (A) 1.8 k/uL (1.3-7.7); Neutrophils % (A) 70 %; Poikilocytosis Slight; RBC 2.23 m/uL (3.80-5.40); RDW 22.7 % (11.5-15.5); WBC 2.6 k/uL (3.8-10.6)
[2023-02-03 12:40] LABS: Platelet Count 21 k/uL (150-450)
[2023-02-03] MEDS ORDERED: IBUPROFEN 200 MG TAB PO PRN (12:52)
--- NOTE | 2023-02-03 14:24 | P.PN ---
Subjective Progress Note Date: 02/03/23 Principal diagnosis: Alcoholic cirrhosis -Received 1 pheresed unit of platelets along with 1 unit of cryoprecipitate -No acute events overnight -Reports feeling well and resting comfortably -Denies any bleeding diathesis, abdominal pain, or acute confusion currently Objective - Vital Signs Vital signs: Vital Signs Temp 98.5 F 02/03/23 09:00 Pulse 78 02/03/23 09:00 Resp 18 02/03/23 09:00 BP 103/65 02/03/23 09:00 Pulse Ox 100 02/03/23 09:00 FiO2 Intake & Output 02/02/23 02/03/23 02/03/23 18:59 06:59 18:59 Intake Total 0 1133 120 Balance 0 1133 120 Weight 79.379 kg Intake: Oral 600 120 Blood Product 0 533 Platelet Pheresis Pas 0 351 Psoralen Unit [id number] Pooled Cryoprecipitate 91 Unit [id number] Other: Voiding Method Toilet Toilet Toilet Diaper Diaper Diaper # Voids 1 2 - Constitutional General appearance: Present: no acute distress - EENT Eyes: Present: EOMI, scleral icterus - Respiratory Respiratory: bilateral: CTA - Cardiovascular Rhythm: regular - Gastrointestinal Gastrointestinal Comment(s): Positive fluid wave and dullness to percussion consistent with ascites General gastrointestinal: Present: distended, soft. Absent: tenderness - Integumentary Integumentary: Present: jaundiced - Neurologic Neurologic: Absent: focal deficits - Labs CBC & Chem 7: 02/03/23 12:20 02/02/23 06:24 Labs: Abnormal Lab Results - Last 24 Hours (Table) 02/03/23 02/03/23 Range/Units 06:46 12:20 WBC 2.6 L (3.8-10.6) k/uL RBC 2.23 L (3.80-5.40) m/uL Hgb 8.4 L (11.4-16.0) gm/dL Hct 25.3 L (34.0-46.0) % MCV 113.6 H (80.0-100.0) fL MCH 37.7 H (25.0-35.0) pg RDW 22.7 H (11.5-15.5) % Plt Count 21 L (150-450) k/uL Lymphocytes # 0.4 L (1.0-4.8) k/uL Macrocytosis Marked A PT 16.8 H (9.0-12.0) sec INR 1.7 H (<1.2) APTT 31.5 H (22.0-30.0) sec Microbiology - Last 24 Hours (Table) 01/30/23 13:19 Gram Stain - Preliminary Paracentesis Fluid Body Fluid Culture - Preliminary Assessment and Plan (1) Cirrhosis of liver with ascites Current Visit: Yes Status: Acute Priority: High Code(s): K74.60 - UNSPECIFIED CIRRHOSIS OF LIVER; R18.8 - OTHER ASCITES SNOMED Code(s): 05307861 (2) Pancytopenia Current Visit: Yes Status: Acute Priority: High Code(s): D61.818 - OTHER PANCYTOPENIA SNOMED Code(s): 384779178 Plan: Ascites/Liver failure: -GI following -She had paracentesis on 01/30/23, with 6.1L of fluid removed. GI reports patient is stable, and do not plan to transfer to [facility] at this time -Ms. 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 She is being supplemented with Vitamin B12, will add fo late -Pancytopenia very likely due to ETOH abuse and liver failure. No reports of bleeding -Will continue to monitor counts -Given no active bleeding and vitamin K 5 mg IV given this morning preceded by 10 mg p.o. given on 02/02/2023, we will hold on platelet transfusion today
--- NOTE | 2023-02-04 05:56 | P.PN ---
Subjective Progress Note Date: 02/03/23 This is a pleasant 37-year-old female who was recently admitted with alcoholic liver disease and alcoholic hepatitis being closely monitored with plans for paracentesis today. Patient was scheduled yesterday although elevated INR and low platelets and interventional radiology recommending platelets ordered for transfusion. Paracentesis and will follow-up with INR today. Patient will be undergoing paracentesis which is currently pending. Patient being followed by GI undergoing workup follows with GI out of [facility]. Patient reports her last alcoholic drink was in November of this year and was attempting to go to alcohol rehab center for evaluation for ascites and jaundice. Patient is currently afebrile with no reports of nausea or vomiting noted. She denies chest pain or shortness of breath. Ammonia remains elevated and would recommend lactulose 3 times a day scheduled as needed. 01/31/2023 Patient is seen and evaluated in follow-up today status post paracentesis with approximately 6 L removed. Patient did receive albumin post and is maintained on Aldactone and Lasix. Continue with lactulose 3 times daily and continue to have bowel movements. Patient had multiple bowel movements yesterday and today and ammonia level is improved. Encouraged increased activity as tolerated. Case management following an discussing possible return to [place] rehab to continue alcohol rehab. Patient to follow-up with her primary specialist at [facility]. Patient is currently afebrile reports to feeling improved and anxious about going. 02/01/2023 Patient seen and evaluated in follow-up this morning and hemoglobin was found to be 6.9 with platelets being low awaiting a unit of each with GI following. Total bilirubin is slightly improved at 11 and liver functions being monitored closely. We will not have GI coverage after today and GI reporting patient is stable with no need to transfer at this time for tertiary treatment center and will have hematology/oncology evaluate and follow the patient. Will follow up with repeat labs in the a.m. Patient's ammonia level is increased although patient is having multiple bowel movements and has been compliant with lactulose, rifaximin being ordered per GI and will continue. Encouraged increase activity as tolerated and will follow-up with repeat labs in the a.m. Recommend fluid restrictions as well and will continue with Lasix and Aldactone. 02/02/2023 Patient is seen in follow-up today with hematology now following an hemoglobin improved after PRBC although awaiting to receive platelets today. Patient was given a dose of vitamin K IV as INR is 2.0. Patient did have some mild bleeding noted and patient had reported she was scratching at a scab on her face and began bleeding and also had been picking her cuticle and with noted bleeding. Patient encouraged to avoid this as high risk for bleeding. Patient ammonia level improved today and continues to have multiple loose stools. Patient abdomen more distended again today and would recommend interventional radiology consultation for possible paracentesis. Patient did have one 3 days ago with removal of approximately 6 L. 02/03/2023 Patient is seen and evaluated in follow-up this morning reports to being lethargic although easily arousable. Hemoglobin above 7 with platelets in the 20s is status post 1 unit of platelets yesterday. No active bleeding noted and patient is continued on vitamin K almost daily for continued elevated INR. Hematology following and will repeat labs. Patient's abdomen is distended and soft although tympanic with interventional radiology following with plans for possible repeat paracentesis on Sunday. Patient may require platelets during transfusion and will have them ordered for Sunday. Will follow-up with ammonia level is patient is more lethargic today. Patient has been compliant with lactulose and will continue current regimen. Review of systems: Constitutional: reports of fatigue today, no fever, or chills Cardiovascular: No reports of chest pain or palpitations Respiratory: No reports of shortness of breath or cough GI: no reports of nausea, no reports of vomiting, reports some increased abdominal distention : No reports of dysuria or retention Neurovascular: no reports of generalized weakness and does report some lower extremity swelling although feels is slightly improved All medications have been reviewed PHYSICAL EXAMINATION: GENERAL: The patient is alert and oriented x4, lethargic but easily arousable. Well developed, well nourished. HEENT: Pupils are round and equally reacting to light. EOMI. scleral icterus. No conjunctival pallor. Normocephalic, atraumatic. No pharyngeal erythema. No thyromegaly. CARDIOVASCULAR: S1 and S2 muffled PULMONARY: diminished breath sounds bilaterally with no wheezing or rhonchi noted. ABDOMEN: soft. Nontender on exam. Becoming more distended, tympanic, normoactive bowel sounds. No palpable organomegaly. MUSCULOSKELETAL: No joint swelling or deformity. EXTREMITIES: No cyanosis, clubbing, or pedal edema. Bilateral lower extremity edema noted NEUROLOGICAL: Gross neurological examination did not reveal any focal deficits. SKIN: No rashes. Jaundice Assessment: Acute alcoholic liver cirrhosis and ascites status post paracentesis 01/30/2023 approximately 6 L removed Severe alcoholic hepatitis Anemia, multifactorial most likely secondary to to cirrhosis of the liver Thrombocytopenia Coagulopathy Hyperbilirubinemia Hypoalbuminemia GI prophylaxis DVT prophylaxis Full code Plan: Recommend to continue with current medications and management with GI evaluation although there will be no GI coverage after today and hematology/oncology has been consulted and following. No need for transfer to [facility] at this time. Patient underwent paracentesis of approximately 6 L removed this admission and IR consulted again for possible paracentesis this Sunday. We'll continue to follow platelets closely as patient may require platelet transfusion during paracentesis INR is elevated and will give a dose of vitamin K and monitor daily. Patient's hemoglobin is above 7 today and has received a unit of platelets. Recommend follow-up labs in a.m. Recommend to continue with current regimen of scheduled lactulose and rifaximin a Encouraged increased activity as tolerated Recommend fluid restrictions of 1200 mL per day Patient will need follow-up with her specialist out of [facility]. Due to multiple complex medical issues, prognosis is guarded The impression and plan of care has been dictated by Madalyn Perkins, nurse practitioner as directed. Dr. Cristhian MD I have performed a history and examination and MDM of this patient, discussed the same with the dictator, and agree with the dictator's assessment and plan as written ,documented as a scribe. Based on total visit time, I have performed more than 50% of the visit. Any additional findings or plans will be noted. Objective - Vital Signs Vital signs: Vital Signs Temp 98.9 F 02/03/23 01:32 Pulse 81 02/03/23 01:32 Resp 16 02/03/23 01:32 BP 93/57 02/03/23 01:32 Pulse Ox 100 02/03/23 01:32 FiO2 Intake & Output 02/02/23 02/03/23 02/03/23 18:59 06:59 18:59 Intake Total 0 1133 Balance 0 1133 Weight 79.379 kg Intake: Oral 600 Blood Product 0 533 Platelet Pheresis Pas 0 351 Psoralen Unit [id number] Pooled Cryoprecipitate 91 Unit [id number] Other: Voiding Method Toilet Toilet Diaper Diaper # Voids 1 2 - Labs CBC & Chem 7: 02/03/23 12:20 02/02/23 06:24 Labs: Abnormal Lab Results - Last 24 Hours (Table) 02/02/23 02/02/23 02/03/23 Range/Units 06:24 06:24 06:46 WBC 3.53 L (4.50-10.00) X 10*3/uL RBC 2.12 L (4.10-5.20) X 10*6/uL Hgb 7.9 L (12.0-15.0) g/dL Hct 23.9 L (37.2-46.3) % MCV 112.7 H (80.0-97.0) fL MCH 37.3 H (27.0-32.0) pg Plt Count 22 L (140-440) X 10*3/uL MPV 12.5 H (9.5-12.2) fL PT 16.8 H (9.0-12.0) sec INR 1.7 H (<1.2) APTT 31.5 H (22.0-30.0) sec Sodium 133 L (135-145) mmol/L Carbon Dioxide 19.9 L (20.0-27.5) mmol/L Anion Gap 9.10 L (10.00-18.00) mmol/L Glucose 143 H (70-110) mg/dL Calcium 7.7 L (8.7-10.3) mg/dL Total Bilirubin 14.50 H* (0.30-1.20) mg/dL AST 57 H (13-35) U/L Total Protein 5.1 L (6.2-8.2) g/dL Albumin 2.6 L (3.8-4.9) g/dL Albumin/Globulin Ratio 1.02 L (1.60-3.17) g/dL Microbiology - Last 24 Hours (Table) 01/30/23 13:19 Gram Stain - Preliminary Paracentesis Fluid Body Fluid Culture - Preliminary
[2023-02-04] MEDS: LACTULOSE 20 GM/30 ML CUP PO SCH ×3 (07:59→21:21)
[2023-02-04] MEDS: SPIRONOLACTONE 25 MG TAB PO SCH (07:59)
[2023-02-04] MEDS: FOLIC ACID 1 MG TAB PO SCH (07:59)
[2023-02-04] MEDS: PANTOPRAZOLE 40 MG TABLET PO SCH (08:00)
[2023-02-04] MEDS: RIFAXIMIN 550 MG TABLET PO SCH ×2 (08:00→20:17)
[2023-02-04] MEDS: FUROSEMIDE 40 MG TAB PO SCH (08:00)
[2023-02-04 09:05] LABS: INR 1.6 (<1.2); Partial Thromboplastin Time 29.4 sec (22.0-30.0); Prothrombin Time 16.2 sec (9.0-12.0)
[2023-02-04] MEDS ORDERED: PHYTONADIONE 10 MG in SODIUM CHLORIDE 0.9% 50 ML IVPB STA (10:05)
[2023-02-04 11:59] LABS: African American GFR (CKD) 130.1 (60.0-200.0); Albumin 2.6 g/dL (3.8-4.9); Albumin/Globulin Ratio 1.04 (1.60-3.17); Anion Gap 6.7 mmol/L (10.00-18.00); BUN/Creat Ratio 16.14 Ratio (12.00-20.00); Blood Urea Nitrogen 11.3 mg/dL (9.0-27.0); Calcium 7.9 mg/dL (8.7-10.3); Carbon Dioxide 19.3 mmol/L (20.0-27.5); Globulin 2.5 g/dL (1.6-3.3); Non-African American GFR(CKD) 112.3 (60.0-200.0); Potassium 4.2 mmol/L (3.5-5.5); Total Bilirubin 12.3 mg/dL (0.30-1.20); Total Protein 5.1 g/dL (6.2-8.2)
--- NOTE | 2023-02-04 12:19 | P.PN ---
Subjective Progress Note Date: 02/04/23 This is a pleasant 37-year-old female who was recently admitted with alcoholic liver disease and alcoholic hepatitis being closely monitored with plans for paracentesis today. Patient was scheduled yesterday although elevated INR and low platelets and interventional radiology recommending platelets ordered for transfusion. Paracentesis and will follow-up with INR today. Patient will be undergoing paracentesis which is currently pending. Patient being followed by GI undergoing workup follows with GI out of [facility]. Patient reports her last alcoholic drink was in November of this year and was attempting to go to alcohol rehab center for evaluation for ascites and jaundice. Patient is currently afebrile with no reports of nausea or vomiting noted. She denies chest pain or shortness of breath. Ammonia remains elevated and would recommend lactulose 3 times a day scheduled as needed. 01/31/2023 Patient is seen and evaluated in follow-up today status post paracentesis with approximately 6 L removed. Patient did receive albumin post and is maintained on Aldactone and Lasix. Continue with lactulose 3 times daily and continue to have bowel movements. Patient had multiple bowel movements yesterday and today and ammonia level is improved. Encouraged increased activity as tolerated. Case management following an discussing possible return to [place] re[facility] to continue alcohol rehab. Patient to follow-up with her primary specialist at [facility]. Patient is currently afebrile reports to feeling improved and anxious about going. 02/01/2023 Patient seen and evaluated in follow-up this morning and hemoglobin was found to be 6.9 with platelets being low awaiting a unit of each with GI following. Total bilirubin is slightly improved at 11 and liver functions being monitored closely. We will not have GI coverage after today and GI reporting patient is stable with no need to transfer at this time for tertiary treatment center and will have hematology/oncology evaluate and follow the patient. Will follow up with repeat labs in the a.m. Patient's ammonia level is increased although patient is having multiple bowel movements and has been compliant with lactulose, rifaximin being ordered per GI and will continue. Encouraged increase activity as tolerated and will follow-up with repeat labs in the a.m. Recommend fluid restrictions as well and will continue with Lasix and Aldactone. 02/02/2023 Patient is seen in follow-up today with hematology now following an hemoglobin improved after PRBC although awaiting to receive platelets today. Patient was given a dose of vitamin K IV as INR is 2.0. Patient did have some mild bleeding noted and patient had reported she was scratching at a scab on her face and began bleeding and also had been picking her cuticle and with noted bleeding. Patient encouraged to avoid this as high risk for bleeding. Patient ammonia level improved today and continues to have multiple loose stools. Patient abdomen more distended again today and would recommend interventional radiology consultation for possible paracentesis. Patient did have one 3 days ago with removal of approximately 6 L. 02/03/2023 Patient is seen and evaluated in follow-up this morning reports to being lethargic although easily arousable. Hemoglobin above 7 with platelets in the 20s is status post 1 unit of platelets yesterday. No active bleeding noted and patient is continued on vitamin K almost daily for continued elevated INR. Hematology following and will repeat labs. Patient's abdomen is distended and soft although tympanic with interventional radiology following with plans for possible repeat paracentesis on Sunday. Patient may require platelets during transfusion and will have them ordered for Sunday. Will follow-up with ammonia level is patient is more lethargic today. Patient has been compliant with lactulose and will continue current regimen. 02/04/2023 Patient is seen and evaluated in follow-up today being followed by hematology. Possible interventional radiology evaluation in the a.m. for paracentesis as patient's abdomen is distended and continues with ascites. Patient did have a paracentesis 4-5 days ago with approximately 6 L removed. Patient's INR today is 1.6 and will give another dose of vitamin K and recommend monitoring daily. Sodium slightly low at 132 and is continued on Lasix and Aldactone. Ammonia is 60 and is also continuing to use rifaximin along with lactulose and is compliant with this. Recommend fluid restrictions and patient reports to tolerating diet. Patient is more awake today on exam. Paracentesis cultures were negative. Review of systems: Constitutional: no reports of fatigue today, no fever, or chills Cardiovascular: No reports of chest pain or palpitations Respiratory: No reports of shortness of breath or cough GI: no reports of nausea, no reports of vomiting, reports some increased abdominal distention : No reports of dysuria or retention Neurovascular: no reports of generalized weakness and does report some lower extremity swelling although feels is slightly improved All medications have been reviewed PHYSICAL EXAMINATION: GENERAL: The patient is alert and oriented x4, more awake today, ill-appearing, thin built other than abdomen distention. HEENT: Pupils are round and equally reacting to light. EOMI. scleral icterus. No conjunctival pallor. Normocephalic, atraumatic. No pharyngeal erythema. No thyromegaly. CARDIOVASCULAR: S1 and S2 muffled PULMONARY: diminished breath sounds bilaterally with no wheezing or rhonchi noted. ABDOMEN: soft. Nontender on exam. Becoming more distended, tympanic, normoactive bowel sounds. No palpable organomegaly. MUSCULOSKELETAL: No joint swelling or deformity. EXTREMITIES: No cyanosis, clubbing, or pedal edema. Bilateral lower extremity edema noted NEUROLOGICAL: Gross neurological examination did not reveal any focal deficits. SKIN: No rashes. Jaundice Assessment: Acute alcoholic liver cirrhosis and ascites status post paracentesis 01/30/2023 approximately 6 L removed Severe alcoholic hepatitis Anemia, multifactorial most likely secondary to to cirrhosis of the liver Thrombocytopenia Coagulopathy Hyperbilirubinemia Hypoalbuminemia GI prophylaxis DVT prophylaxis Full code Plan: Recommend to continue with current medications and management with GI evaluation although there will be no GI coverage after today and hematology/oncology has been consulted and following. No need for transfer to [facility] at this time. Patient underwent paracentesis of approximately 6 L removed this admission and IR consulted again for possible paracentesis this Sunday. We'll continue to follow platelets closely as patient may require platelet transfusion during paracentesis INR is elevated and will give a dose of vitamin K and monitor daily. Patient's hemoglobin ispendingnd has received a unit of platelets yesterday . Recommend follow-up labs in a.m. will order platelets for tomorrow in the event of paracentesis Recommend to continue with current regimen of scheduled lactulose and rifaximin abdomen, ammonia is improved today, currently at 60 Encouraged increased activity as tolerated Recommend fluid restrictions of 1200 mL per day Patient will need follow-up with her specialist out of [facility]. Will await interventional radiology evaluation in a.m. Due to multiple complex medical issues, prognosis is guarded The impression and plan of care has been dictated by Madalyn Perkins, nurse practitioner as directed. Dr. Cedric MD I have performed a history and examination and MDM of this patient, discussed with the dictator, and agree with the dictator's assessment and plan as written ,documented as a scribe. Based on total visit time, I have performed more than 50% of the visit. Any additional findings or plans will be noted. Objective - Vital Signs Vital signs: Vital Signs Temp 98.4 F 02/04/23 06:52 Pulse 78 02/04/23 06:52 Resp 16 02/04/23 06:52 BP 110/53 02/04/23 06:52 Pulse Ox 99 02/04/23 06:52 FiO2 Intake & Output 02/03/23 02/04/23 02/04/23 18:59 06:59 18:59 Intake Total 890 480 Balance 890 480 Intake: Intake, IV Titration 50 Amount Phytonadione 5 mg In 50 Sodium Chloride 0.9% 50 ml @ 100 mls/hr IVPB ONCE STA Rx#:[id number] Oral 840 480 Other: Voiding Method Toilet Toilet Diaper Diaper # Voids 2 # Bowel Movements 6 - Labs CBC & Chem 7: 02/03/23 12:20 02/04/23 07:41 Labs: Abnormal Lab Results - Last 24 Hours (Table) 02/03/23 Range/Units 12:20 WBC 2.6 L (3.8-10.6) k/uL RBC 2.23 L (3.80-5.40) m/uL Hgb 8.4 L (11.4-16.0) gm/dL Hct 25.3 L (34.0-46.0) % MCV 113.6 H (80.0-100.0) fL MCH 37.7 H (25.0-35.0) pg RDW 22.7 H (11.5-15.5) % Plt Count 21 L (150-450) k/uL Lymphocytes # 0.4 L (1.0-4.8) k/uL Macrocytosis Marked A Microbiology - Last 24 Hours (Table) 01/30/23 13:19 Anaerobic Culture - Final Paracentesis Fluid 01/30/23 13:19 Gram Stain - Final Paracentesis Fluid Body Fluid Culture - Final
[2023-02-04 12:27] LABS: Basophils # (A) 0.01 X 10*3/uL (0.00-0.10); Basophils % (A) 0.4 %; Eosinophils # (A) 0.12 X 10*3/uL (0.04-0.35); Eosinophils % (A) 4.5 %; HCT 21.8 % (37.2-46.3); HGB 7.2 g/dL (12.0-15.0); Immature Grans, Automated 0.7 %; Lymphocytes # (A) 0.58 X 10*3/uL (0.90-5.00); Lymphocytes % (A) 21.6 %; MCH 37.5 pg (27.0-32.0); MCV 113.5 fL (80.0-97.0); Mean Platelet Volume 11.9 fL (9.5-12.2); Monocytes # (A) 0.29 X 10*3/uL (0.20-1.00); Monocytes % (A) 10.8 %; NRBC Per 100 WBC 0 /100 WBCS (0.0-0.0); Neutrophils # (A) 1.66 X 10*3/uL (1.80-7.70); Platelet Count 22 X 10*3/uL (140-440); RBC 1.92 X 10*6/uL (4.10-5.20); WBC 2.68 X 10*3/uL (4.50-10.00)
[2023-02-04 12:28] LABS: Acanthocytes 2+; Anisocytosis (M) 2+; Immature Platelet Fraction 3.8 % (1.1-6.1); Macrocytosis (M) 3+
[2023-02-05 07:28] LABS: INR 1.6 (<1.2); Partial Thromboplastin Time 29.2 sec (22.0-30.0); Prothrombin Time 16.1 sec (9.0-12.0)
[2023-02-05] MEDS: FOLIC ACID 1 MG TAB PO SCH (08:36)
[2023-02-05] MEDS: FUROSEMIDE 40 MG TAB PO SCH (08:36)
[2023-02-05] MEDS: PANTOPRAZOLE 40 MG TABLET PO SCH (08:36)
[2023-02-05] MEDS: SPIRONOLACTONE 25 MG TAB PO SCH (08:36)
[2023-02-05] MEDS: LACTULOSE 20 GM/30 ML CUP PO SCH ×3 (08:37→20:59)
[2023-02-05] MEDS: RIFAXIMIN 550 MG TABLET PO SCH ×2 (08:37→20:03)
[2023-02-05] MEDS: ALBUMIN HUMAN 25% 50 ML in EMPTY BAG 1 BAG IVPB SCH ×2 (17:03→18:02)
--- NOTE | 2023-02-05 19:12 | P.PN ---
Subjective Progress Note Date: 02/05/23 This is a pleasant 37-year-old female who was recently admitted with alcoholic liver disease and alcoholic hepatitis being closely monitored with plans for paracentesis today. Patient was scheduled yesterday although elevated INR and low platelets and interventional radiology recommending platelets ordered for transfusion. Paracentesis and will follow-up with INR today. Patient will be undergoing paracentesis which is currently pending. Patient being followed by GI undergoing workup follows with GI out of [facility]. Patient reports her last alcoholic drink was in November of this year and was attempting to go to alcohol rehab center for evaluation for ascites and jaundice. Patient is currently afebrile with no reports of nausea or vomiting noted. She denies chest pain or shortness of breath. Ammonia remains elevated and would recommend lactulose 3 times a day scheduled as needed. 01/31/2023 Patient is seen and evaluated in follow-up today status post paracentesis with approximately 6 L removed. Patient did receive albumin post and is maintained on Aldactone and Lasix. Continue with lactulose 3 times daily and continue to have bowel movements. Patient had multiple bowel movements yesterday and today and ammonia level is improved. Encouraged increased activity as tolerated. Case management following an discussing possible return to [facility] rehab to continue alcohol rehab. Patient to follow-up with her primary specialist at [facility]. Patient is currently afebrile reports to feeling improved and anxious about going. 02/01/2023 Patient seen and evaluated in follow-up this morning and hemoglobin was found to be 6.9 with platelets being low awaiting a unit of each with GI following. Total bilirubin is slightly improved at 11 and liver functions being monitored closely. We will not have GI coverage after today and GI reporting patient is stable with no need to transfer at this time for tertiary treatment center and will have hematology/oncology evaluate and follow the patient. Will follow up with repeat labs in the a.m. Patient's ammonia level is increased although patient is having multiple bowel movements and has been compliant with lactulose, rifaximin being ordered per GI and will continue. Encouraged increase activity as tolerated and will follow-up with repeat labs in the a.m. Recommend fluid restrictions as well and will continue with Lasix and Aldactone. 02/02/2023 Patient is seen in follow-up today with hematology now following an hemoglobin improved after PRBC although awaiting to receive platelets today. Patient was given a dose of vitamin K IV as INR is 2.0. Patient did have some mild bleeding noted and patient had reported she was scratching at a scab on her face and began bleeding and also had been picking her cuticle and with noted bleeding. Patient encouraged to avoid this as high risk for bleeding. Patient ammonia level improved today and continues to have multiple loose stools. Patient abdomen more distended again today and would recommend interventional radiology consultation for possible paracentesis. Patient did have one 3 days ago with removal of approximately 6 L. 02/03/2023 Patient is seen and evaluated in follow-up this morning reports to being lethargic although easily arousable. Hemoglobin above 7 with platelets in the 20s is status post 1 unit of platelets yesterday. No active bleeding noted and patient is continued on vitamin K almost daily for continued elevated INR. Hematology following and will repeat labs. Patient's abdomen is distended and soft although tympanic with interventional radiology following with plans for possible repeat paracentesis on Sunday. Patient may require platelets during transfusion and will have them ordered for Sunday. Will follow-up with ammonia level is patient is more lethargic today. Patient has been compliant with lactulose and will continue current regimen. 02/04/2023 Patient is seen and evaluated in follow-up today being followed by hematology. Possible interventional radiology evaluation in the a.m. for paracentesis as patient's abdomen is distended and continues with ascites. Patient did have a paracentesis 4-5 days ago with approximately 6 L removed. Patient's INR today is 1.6 and will give another dose of vitamin K and recommend monitoring daily. Sodium slightly low at 132 and is continued on Lasix and Aldactone. Ammonia is 60 and is also continuing to use rifaximin along with lactulose and is compliant with this. Recommend fluid restrictions and patient reports to tolerating diet. Patient is more awake today on exam. Paracentesis cultures were negative. 02/05/2023 Patient is seen and evaluated in follow-up today currently awaiting interventional radiology this afternoon for paracentesis. Patient does have platelets ordered although awaiting to receive them from [facility] as platelets remain low and radiology recommending platelet transfusion during paracentesis. Patient's INR is 1.6, no active bleeding noted. Patient is maintained on Lasix and Aldactone and will continue. Recommend fluid restrictions. Will follow up with labs in the a.m. and discuss with hematology about discharge planning. Patient will need follow-up in the outpatient setting. Review of systems: Constitutional: no reports of fatigue today, no fever, or chills Cardiovascular: No reports of chest pain or palpitations Respiratory: No reports of shortness of breath or cough GI: no reports of nausea, no reports of vomiting, reports some increased abdominal distention : No reports of dysuria or retention Neurovascular: no reports of generalized weakness and does report some lower extremity swelling that has improved All medications have been reviewed PHYSICAL EXAMINATION: GENERAL: The patient is alert and oriented x4, more awake today, ill-appearing, thin built other than abdomen distention. HEENT: Pupils are round and equally reacting to light. EOMI. scleral icterus. No conjunctival pallor. Normocephalic, atraumatic. No pharyngeal erythema. No thyromegaly. CARDIOVASCULAR: S1 and S2 muffled PULMONARY: diminished breath sounds bilaterally with no wheezing or rhonchi not ed. ABDOMEN: soft. Nontender on exam. Becoming more distended, tympanic, normoactive bowel sounds. No palpable organomegaly. MUSCULOSKELETAL: No joint swelling or deformity. EXTREMITIES: No cyanosis, clubbing, or pedal edema. Bilateral lower extremity edema noted NEUROLOGICAL: Gross neurological examination did not reveal any focal deficits. SKIN: No rashes. Jaundice Assessment: Acute alcoholic liver cirrhosis and ascites status post paracentesis 01/30/2023 approximately 6 L removed and repeat paracentesis of over 5 L removed on 02/05/2023 Severe alcoholic hepatitis Anemia, multifactorial most likely secondary to to cirrhosis of the liver Thrombocytopenia Coagulopathy Hyperbilirubinemia Hypoalbuminemia GI prophylaxis DVT prophylaxis Full code Plan: Recommend to continue with current medications and management with hematology following. Patient had been evaluated by GI and needs follow-up with [facility] INR is 1.6 today and will follow-up with repeat labs and give vitamin K Platelets are being ordered from [facility] as patient is scheduled to have paracentesis today. Paracentesis was done with approximately 5 L removed and will give albumin Ammonia level continues to be elevated and is maintained on lactulose scheduled along with rifaximin Encouraged increase activity as tolerated and will discuss discharge planning and arrange for outpatient follow-up with consultations Due to multiple complex medical issues, prognosis is guarded Possible discharge in 24 hours. The impression and plan of care has been dictated by Madalyn Perkins, nurse practitioner as directed. Dr. Cedric MD I have performed a history and examination and MDM of this patient, discussed the same with the dictator, and agree with the dictator's assessment and plan as written ,documented as a scribe. Based on total visit time, I have performed more than 50% of the visit. Any additional findings or plans will be noted. Objective - Vital Signs Vital signs: Vital Signs Temp 97.8 F 02/05/23 07:56 Pulse 69 02/05/23 07:56 Resp 18 02/05/23 07:56 BP 112/65 02/05/23 07:56 Pulse Ox 99 02/05/23 07:56 FiO2 Intake & Output 02/04/23 02/05/23 02/05/23 18:59 06:59 18:59 Intake Total 700 300 Balance 700 300 Intake: Oral 700 300 Other: Voiding Method Toilet Toilet Toilet Diaper Diaper # Voids 3 2 - Labs CBC & Chem 7: 02/04/23 07:41 02/04/23 07:41 Labs: Abnormal Lab Results - Last 24 Hours (Table) 02/04/23 02/04/23 02/05/23 Range/Units 07:41 07:41 05:34 WBC 2.68 L (4.50-10.00) X 10*3/uL RBC 1.92 L (4.10-5.20) X 10*6/uL Hgb 7.2 L (12.0-15.0) g/dL Hct 21.8 L (37.2-46.3) % MCV 113.5 H (80.0-97.0) fL MCH 37.5 H (27.0-32.0) pg Plt Count 22 L (140-440) X 10*3/uL Plt Count Comment A Neutrophils # 1.66 L (1.80-7.70) X 10*3/uL Lymphocytes # 0.58 L (0.90-5.00) X 10*3/uL PT 16.1 H (9.0-12.0) sec INR 1.6 H (<1.2) Fibrinogen 143 L (200-500) mg/dL Sodium 132 L (135-145) mmol/L Carbon Dioxide 19.3 L (20.0-27.5) mmol/L Anion Gap 6.70 L (10.00-18.00) mmol/L Calcium 7.9 L (8.7-10.3) mg/dL Total Bilirubin 12.30 H* (0.30-1.20) mg/dL AST 52 H (13-35) U/L Total Protein 5.1 L (6.2-8.2) g/dL Albumin 2.6 L (3.8-4.9) g/dL Albumin/Globulin Ratio 1.04 L (1.60-3.17) g/dL
[2023-02-06 06:56] LABS: INR 1.6 (<1.2); Partial Thromboplastin Time 26.7 sec (22.0-30.0)
[2023-02-06 07:47] VITALS: RESP 16
--- NOTE | 2023-02-06 08:15 | US ---
Ultrasound-guided paracentesis. DATE OF EXAM: 02/05/2023 CLINICAL HISTORY: Ascites The procedure was discussed with the patient. The risks, complications, benefits, and alternatives we re discussed and any questions were answered. Informed consent was obtained. The patient was placed s upine on the ultrasound table and prepped and draped in the usual sterile fashion. All elements of maximal barrier technique were utilized. Under ultrasound guidance, access into the right lower quadrant was obtained, via the paracentesis catheter system and direct ultrasound guidanc e. The patient was stable throughout the procedure and remained stable upon discharge from Department of Radiology. IMPRESSION: Successful paracentesis under ultrasound guidance.
[2023-02-06] MEDS: SPIRONOLACTONE 25 MG TAB PO SCH (09:23)
[2023-02-06] MEDS: RIFAXIMIN 550 MG TABLET PO SCH (09:23)
[2023-02-06] MEDS: LACTULOSE 20 GM/30 ML CUP PO SCH (09:23)
[2023-02-06] MEDS: FOLIC ACID 1 MG TAB PO SCH (09:23)
[2023-02-06] MEDS: FUROSEMIDE 40 MG TAB PO SCH (09:23)
[2023-02-06] MEDS: PANTOPRAZOLE 40 MG TABLET PO SCH (09:23)
[2023-02-06 09:42] LABS: African American GFR (CKD) 130.1 (60.0-200.0); Anion Gap 6.7 mmol/L (10.00-18.00); BUN/Creat Ratio 16.57 Ratio (12.00-20.00); Blood Urea Nitrogen 11.6 mg/dL (9.0-27.0); Carbon Dioxide 19.3 mmol/L (20.0-27.5); Non-African American GFR(CKD) 112.3 (60.0-200.0); Potassium 4.1 mmol/L (3.5-5.5)
[2023-02-06] MEDS ORDERED: PHYTONADIONE 10 MG in SODIUM CHLORIDE 0.9% 50 ML IVPB STA (10:11)
[2023-02-06 10:20] LABS: Basophils # (A) 0.01 X 10*3/uL (0.00-0.10); Basophils % (A) 0.4 %; Eosinophils # (A) 0.08 X 10*3/uL (0.04-0.35); Eosinophils % (A) 3.1 %; HCT 22.6 % (37.2-46.3); HGB 7.3 g/dL (12.0-15.0); Immature Grans, Automated 1.2 %; Lymphocytes # (A) 0.38 X 10*3/uL (0.90-5.00); Lymphocytes % (A) 14.8 %; MCH 37.4 pg (27.0-32.0); MCHC 32.3 g/dL (32.0-37.0); MCV 115.9 fL (80.0-97.0); Mean Platelet Volume 12.7 fL (9.5-12.2); Monocytes % (A) 11.7 %; NRBC Per 100 WBC 0 /100 WBCS (0.0-0.0); Neutrophils # (A) 1.76 X 10*3/uL (1.80-7.70); Neutrophils % (A) 68.8 %; Platelet Count 28 X 10*3/uL (140-440); RBC 1.95 X 10*6/uL (4.10-5.20); RDW 24.3 % (11.5-14.5); WBC 2.56 X 10*3/uL (4.50-10.00)
[2023-02-06 13:32] VITALS: BP 105/63; PULSE 80; TEMP 98.1
--- NOTE | 2023-02-06 14:12 | P.PN ---
Subjective Progress Note Date: 02/06/23 Principal diagnosis: ascites/liver failure At today's visit patient is reporting feeling well, and is anxious for discharge. She had paracentesis yesterday with approx 4L of fluid removed. Denies abdominal pain, nausea, vomiting, diarrhea, fever and chills. Denies any episodes of bleeding. No other complaints at this time. Objective - Vital Signs Vital signs: Vital Signs Temp 98.1 F 02/06/23 13:31 Pulse 80 02/06/23 13:31 Resp 16 02/06/23 13:31 BP 105/63 02/06/23 13:31 Pulse Ox 100 02/06/23 13:31 FiO2 Intake & Output 02/05/23 02/06/23 02/06/23 18:59 06:59 18:59 Intake Total 373 300 450 Balance 373 300 450 Intake: Intake, IV Titration 100 Amount Albumin Human 25% 50 ml 100 In Empty Bag 1 bag @ 50 mls/hr IVPB Q1H [facility] Rx#: [id number] Oral 300 450 Blood Product 273 Platelet Pheresis Pas 273 Psoralen Unit [id number] Other: Voiding Method Toilet Toilet Toilet # Voids 1 2 5 # Bowel Movements 2 1 1 - Constitutional General appearance: Present: average body habitus, no acute distress - EENT Eyes: Present: EOMI, scleral icterus ENT: Present: hearing grossly normal - Respiratory Details: breathing is even and unlabored - Cardiovascular Details: skin warm and dry - Gastrointestinal General gastrointestinal: Present: distended - Integumentary Integumentary: Present: jaundiced - Neurologic Neurologic Comment(s): grossly intact - Musculoskeletal Musculoskeletal: Present: strength equal bilaterally - Psychiatric Psychiatric: Present: A&O x's 3, appropriate affect, intact judgment & insight - Labs CBC & Chem 7: 02/06/23 05:35 02/06/23 05:35 Labs: Abnormal Lab Results - Last 24 Hours (Table) 02/06/23 02/06/23 02/06/23 Range/Units 05:35 05:35 05:35 WBC 2.56 L (4.50-10.00) X 10*3/uL RBC 1.95 L (4.10-5.20) X 10*6/uL Hgb 7.3 L (12.0-15.0) g/dL Hct 22.6 L (37.2-46.3) % MCV 115.9 H (80.0-97.0) fL MCH 37.4 H (27.0-32.0) pg RDW 24.3 H (11.5-14.5) % Plt Count 28 L (140-440) X 10*3/uL MPV 12.7 H (9.5-12.2) fL Neutrophils # 1.76 L (1.80-7.70) X 10*3/uL Lymphocytes # 0.38 L (0.90-5.00) X 10*3/uL PT 16.0 H (9.0-12.0) sec INR 1.6 H (<1.2) Fibrinogen 143 L (200-500) mg/dL Sodium 132 L (135-145) mmol/L Carbon Dioxide 19.3 L (20.0-27.5) mmol/L Anion Gap 6.70 L (10.00-18.00) mmol/L Calcium 8.0 L (8.7-10.3) mg/dL Ammonia (<30) umol/L 02/06/23 Range/Units 05:35 WBC (4.50-10.00) X 10*3/uL RBC (4.10-5.20) X 10*6/uL Hgb (12.0-15.0) g/dL Hct (37.2-46.3) % MCV (80.0-97.0) fL MCH (27.0-32.0) pg RDW (11.5-14.5) % Plt Count (140-440) X 10*3/uL MPV (9.5-12.2) fL Neutrophils # (1.80-7.70) X 10*3/uL Lymphocytes # (0.90-5.00) X 10*3/uL PT (9.0-12.0) sec INR (<1.2) Fibrinogen (200-500) mg/dL Sodium (135-145) mmol/L Carbon Dioxide (20.0-27.5) mmol/L Anion Gap (10.00-18.00) mmol/L Calcium (8.7-10.3) mg/dL Ammonia 72 H (<30) umol/L Assessment and Plan (1) Cirrhosis of liver with ascites Current Visit: Yes Status: Acute Priority: High Code(s): K74.60 - UNSPECIFIED CIRRHOSIS OF LIVER; R18.8 - OTHER ASCITES SNOMED Code(s): 17982876 (2) Pancytopenia Current Visit: Yes Status: Acute Priority: High Code(s): D61.818 - OTHER PANCYTOPENIA SNOMED Code(s): 884833125 Plan: Ascites/Liver failure: -GI following. -She had additional paracentesis yesterday, with approx 4L of fluid removed. -INR 1.6 today. Additional dose IV vitamin K ordered. Will repeat coags daily with goal of INR less than 1.5 -fibrinogen 143 today. Cryoprecipitate given on 02/02 -Encouraged close f/u with regional director at [facility] Pancytopenia: -Patient has received 2 units of PRBCs and 4 units of platelets since admission. Hemoglobin 7.3 today, platelets 28,000. -Iron studies repeated. Requested on pre-transfusion blood, however iron studies were ran on blood post transfusion which makes it difficult to ascertain if there is a true iron deficiency present -B12 and folate normal. She is being supplemented with Vitamin B12, folate added -Pancytopenia very likely due to ETOH abuse and liver failure. No reports of bleeding -Will continue to monitor counts -Please transfuse for hemoglobin less than 7 or if symptomatic. -Please transfuse for platelets less than 10,000 or if symptomatic *If labs are stable/no signs of bleeding, patient is cleared from a hem/onc standpoint once cleared by IM and other consulted medical specialities
--- NOTE | 2023-02-09 21:58 | P.DS ---
Providers Date of admission: 01/27/23 14:17 Expected date of discharge: 02/06/23 Attending physician: Nate Cope Consults: 01/29/23 16:59 Consult Physician Routine Consulting Provider: Felisa Wells Consult Reason/Comments: gi bleeding Do you want consulting provider notified?: Yes 02/01/23 10:06 Consult Physician Routine Consulting Provider: Jacky Aguilar Consult Reason/Comments: pancytopenia, liver failure Do you want consulting provider notified?: Yes Primary care physician: Stated None Hospital Course: Final diagnosis Acute alcoholic liver cirrhosis and ascites status post paracentesis 01/30/2023 approximately 6 L removed and repeat paracentesis of over 5 L removed on 02/05/2023 Severe alcoholic hepatitis Anemia, multifactorial most likely secondary to to cirrhosis of the liver Thrombocytopenia Coagulopathy Hyperbilirubinemia Hypoalbuminemia GI prophylaxis DVT prophylaxis Full code Discharge disposition Patient is being discharged in a stable condition with guarded prognosis to home and patient is attempting to go to [place] for alcohol rehab. Patient will follow-up with Dr. Chon Morrow in the outpatient setting upon discharge. Patient is to also follow-up with the [facility] transplant team outpatient as scheduled. Total time taken is greater than 35 minutes. Hospital course This is a 37-year-old female who was recently admitted with alcoholic cirrhosis and ascites with abdominal distention and pain. Patient was evaluated by interventional radiology underwent paracentesis 2 with over 11 L removed. Patient had required platelets along with blood transfusions and was evaluated by well head pumper. Patient also being followed by GI and recommending to continue on the transplant wrote that she has initiated needs to be sober for minimum of 6 months to be considered on the transplant list. Patient has been sober since November and is attempting to get back to alcohol rehab for continued support. Encouraged follow-up with primary care provider and has been cleared by consultations. Currently no reports of chest pain, shortness of breath, or palpitations. Patient is afebrile. No reports of nausea or vomiting and patient is tolerating diet. Patient will be discharged home today. Guarded prognosis Physical exam: Gen: This is a 37-year-old female who was awake, alert and oriented 3, thin built, ill-appearing, extremely jaundice HEENT: Head is atraumatic, normocephalic. Pupils equal, round. Sclerae is anicteric. NECK: Supple. No JVD. No lymphadenopathy. No thyromegaly. LUNGS: Clear to auscultation. No wheezes or rhonchi. No intercostal retractions. HEART: Regular rate and rhythm. No murmur. ABDOMEN: Soft. Bowel sounds are present. No masses. No tenderness. EXTREMITIES: No pedal edema. No calf tenderness. Some mild lower extremity edema although improved NEUROLOGICAL: Patient is awake, alert and oriented x3. Cranial nerves 2 through 12 are grossly intact. Please refer to medication reconciliation sheet for a list of medications. The impression and plan of care has been dictated by Madalyn Perkins, Nurse Practitioner as directed. Dr. Cedric MD I have performed a history and examination and MDM of this patient, discussed the same with the dictator, and agree with the dictator's assessment and plan as written ,documented as a scribe. Based on total visit time, I have performed more than 50% of the visit. Patient Condition at Discharge: Fair Plan - Discharge Summary New Discharge Prescriptions: New Rifaximin [Xifaxan] 550 mg PO BID 30 Days #60 tab Ibuprofen [Advil] 200 mg PO DAILY PRN tab PRN Reason: Pain Folic Acid 1 mg PO DAILY #30 tab Continue Omeprazole [PriLOSEC] 20 mg PO DAILY nadoloL [Corgard] 20 mg PO DAILY Cyanocobalamin [Vitamin B-12] 500 mcg PO DAILY PRN PRN Reason: ENERGY Changed Lactulose 20 gm PO TID #360 ml Furosemide [Lasix] 40 mg PO BID 30 Days #60 tab Spironolactone [Aldactone] 50 mg PO BID 30 Days #60 tab Discharge Medication List Cyanocobalamin [Vitamin B-12] 500 mcg PO DAILY PRN 01/27/23 [History] Omeprazole [PriLOSEC] 20 mg PO DAILY 01/27/23 [History] nadoloL [Corgard] 20 mg PO DAILY 01/27/23 [History] Folic Acid 1 mg PO DAILY #30 tab 02/06/23 [Rx] Furosemide [Lasix] 40 mg PO BID 30 Days #60 tab 02/06/23 [Rx] Ibuprofen [Advil] 200 mg PO DAILY PRN tab 02/06/23 [Rx] Lactulose 20 gm PO TID #360 ml 03/28/23 [Rx] Rifaximin [Xifaxan] 550 mg PO BID 30 Days #60 tab 02/06/23 [Rx] Spironolactone [Aldactone] 50 mg PO BID 30 Days #60 tab 02/06/23 [Rx] Follow up Appointment(s)/Referral(s): Felisa Wells MD [STAFF PHYSICIAN] - 1 Week Silvia Ogden MD [STAFF PHYSICIAN] - 1 Week (Patient needs to call to make a follow up appointment.) Ambulatory/Diagnostic Orders: Complete Blood Count w/diff [LAB.AMB] Time Frame: 3 Days, Location: None Selected Comprehensive Metabolic Panel [LAB.AMB] Location: None Selected Prothrombin Time INR [LAB.AMB] Location: None Selected Patient Instructions/Handouts: Spironolactone (By mouth), Folic Acid (By mouth), Lactulose (By mouth), Rifaximin (By mouth), Cirrhosis (DC), Complete Blood Count (GEN), Anemia (DC), Pancytopenia (DC), Comprehensive Metabolic Panel (GEN) Activity/Diet/Wound Care/Special Instructions: Activity Limited until follow-up Follow-up with primary care provider Follow-up with GI outpatient Follow-up with supervisor plate pasting at [facility] as discussed previously Continue taking medications as prescribed Recommend repeat labs in the next few days Continue fluid restrictions of 45 ounces at max daily including all fluid intake Discharge/Stand Alone Forms: AA Meetings [facility] Discharge Disposition: HOME SELF-CARE
== END 2023-02-06 15:44 | disposition home or self-care (01) | DRG 280 ==
LOC: EC 10:24 → 5NMEDONC 14:17
PROVIDERS: ADMIT Internal Medicine; ATTEND Internal Medicine
PROC: 30233N1 Transfusion of Nonautologous Red Blood Cells into Peripheral Vein, Percutaneous Approach (ICD-10-PCS; 2023-01-29)
PROC: 0W9G3ZZ Drainage of Peritoneal Cavity, Percutaneous Approach (ICD-10-PCS; principal; 2023-01-30)
PROC: 30233R1 Transfusion of Nonautologous Platelets into Peripheral Vein, Percutaneous Approach (ICD-10-PCS; 2023-01-30)
PROC: 6A551Z2 Pheresis of Platelets, Multiple (ICD-10-PCS; 2023-01-30)
PROC: 30233J1 Transfusion of Nonautologous Serum Albumin into Peripheral Vein, Percutaneous Approach (ICD-10-PCS; 2023-01-30)
PROC: 0W9G3ZZ Drainage of Peritoneal Cavity, Percutaneous Approach (ICD-10-PCS; 2023-02-06)
DX: K70.31 Alcoholic cirrhosis of liver with ascites (principal); K70.40 Alcoholic hepatic failure without coma; D61.818 Other pancytopenia; Z76.82 Awaiting organ transplant status; D68.4 Acquired coagulation factor deficiency; D68.69 Other thrombophilia; K76.6 Portal hypertension; D53.8 Other specified nutritional anemias; E88.09 Other disorders of plasma-protein metabolism, not elsewhere classified; D63.8 Anemia in other chronic diseases classified elsewhere; K70.11 Alcoholic hepatitis with ascites; K76.82 Hepatic encephalopathy; F10.11 Alcohol abuse, in remission; D73.1 Hypersplenism; Y90.0 Blood alcohol level of less than 20 mg/100 ml; Z79.899 Other long term (current) drug therapy
CPT/HCPCS: 36415; 49083; 76705; 80048; 80053; 80306; 80320; 81001; 81025; 82140; 82248; 82607; 82728; 82746; 82945; 83540; 83550; 83605; 85025; 85027; 85049; 85384; 85610; 85730; 86850; 86900; 86901; 86920; 87070; 87075; 87205; 88108; 88305; 89050; 99284